=== PATIENT | male | born 1945 | race Caucasian/White ===

== ENCOUNTER 2018-09-05 14:09 | Emergency (ER) | payer OTHER ==
[2018-09-05 14:45] LABS: Absolute Lymphocytes (CBC) 1.8 K/uL (0.7-4.9); Absolute Monocytes 0.9 K/uL (0.1-1.3); Absolute Neutrophil 8.8 K/uL (1.8-8.0); Basophils % 0.9 % (0-1.3); Eosinophils % 0.8 % (0-4.4); Hematocrit 48.7 % (39.6-49.0); Lymphocytes % 15.7 % (15.3-44.8); MPV 9.5 fL (7.6-11.3); Monocytes % 7.6 % (3.3-12.3); RBC Red Blood Cell Count 5.61 M/uL (4.33-5.43)
--- NOTE | 2018-09-05 14:48 | RAD REPORT ---
EXAM DESCRIPTION: Guy Single View09/05/2018 2:35 pm CLINICAL HISTORY: Chest pain COMPARISON: 2007 FINDINGS: The patient is in a poor degree of inspiration. The lungs appear clear of acute infiltrate. The heart is mildly enlarged IMPRESSION: No acute abnormalities displayed
[2018-09-05 14:55] LABS: Protime INR 1.15
[2018-09-05 15:01] LABS: Albumin 3.7 g/dL (3.4-5.0); Bilirubin Direct 0.3 mg/dL (0-0.2); Bilirubin Total 0.8 mg/dL (0.2-1.0); Magnesium 1.8 mg/dL (1.8-2.4); Potassium 3.8 mmol/L (3.5-5.1); Protein, Total 7.1 g/dL (6.4-8.2)
[2018-09-05 15:04] LABS: Troponin (Emerg Dept Use Only) 0.53 ng/mL (0.0-0.045)
[2018-09-05] MEDS ORDERED: NA CHLORIDE 0.9% 500 ML ONE (16:38)
--- NOTE | 2018-09-05 17:03 | EKG ---
Test Date: 2018-09-05 Test Time: 14:21:06 [employer]: LEOBARDO MEASUREMENT RESULTS: Intervals: Rate: 106 NV: 192 QRSD: 156 QT: 480 QTc: 637 Victor: P: 64 NV: 192 QRS: -32 T: 103 INTERPRETIVE STATEMENTS: Sinus tachycardia Left axis deviation Left bundle branch block Abnormal ECG Compared to ECG 11/02/2015 06:41:24 Sinus rhythm no longer present Electronically Signed On 09-05-18 17:03:00 PROCEDURES TECH by Darci Munguia
--- NOTE | 2018-09-05 17:09 | ECHO ---
HEIGHT: ft in WEIGHT: lb oz DATE OF STUDY: 09/05/[address]: Brody Shah MD 2-DIMENSIONAL: YES M.MODE: YES DOPPLER: YES COLOR FLOW: YES TDS: YES PORTABLE: NO DEFINITY: NO BUBBLE STUDY: NO DIAGNOSIS: SHORTNESS OF BREATH, LOW EJECTION FRACTION. CARDIAC HISTORY: CATHERIZATION: YES SURGERY: NO PROSTHETIC VALVE: NO PACEMAKER: NO MEASUREMENTS (cm) DIASTOLIC (NORMALS) SYSTOLIC (NORMALS) IVSd 1.0 (0.6-1.2) LA Diam 5.0 (1.9-4.0) LVEF 15-20% LVIDd 6.0 (3.5-5.7) LVIDs 5.3 (2.0-3.5) %FS 13% LVPWd 1.1 (0.6-1.2) Ao Diam 3.0 (2.0-3.7) 2 DIMENSIONAL ASSESSMENT: RIGHT ATRIUM: DILATED LEFT ATRIUM: DILATED RIGHT VENTRICLE: DILATED LEFT VENTRICLE: DILATED TRICUSPID VALVE: NORMAL MITRAL VALVE: NORMAL PULMONIC VALVE: NORMAL AORTIC VALVE: SCLEROSIS PERICARDIAL EFFUSION: NONE AORTIC ROOT: NORMAL LEFT VENTRICULAR WALL MOTION: SEVERE GLOBAL HYPOKINESIS. DOPPLER/COLOR FLOW: NO AORTIC STENOSIS. MILD AORTIC REGURGITATION AND MITRAL REGURGITATION. COMMENTS: FOUR CHAMBER DILATATION. SEVERLY DEPRESSED LEFT VENTRICULAR EJECTION FRACTION. AORTIC SCLEROSIS WITH NO AORTIC STENOSIS. MILD AORTIC REGURGITATION AND MITRAL REGURGITATION. TECHNOLOGIST: MIKEY OKEEFE [facility]
--- NOTE | 2018-09-05 19:41 | EDPHYS ---
Physician Documentation [facility] Name: Ion Ryan Age: 73 yrs Sex: Male : 1945 Arrival Date: 09/05/2018 Time: 14:13 Bed 4 Private MD: Darci Munguia L ED Physician Patrick Thakkar HPI: 09/05 14:31 This 73 yrs old Male presents to ER via Wheelchair with complaints of Chest kdr Tightness. 14:32 The patient has shortness of breath at rest, with light activity. Onset: The kdr symptoms/episode began/occurred gradually, 2 month(s) ago. Duration: The symptoms are continuous, and are steadily getting worse. The patient's shortness of breath is aggravated by exertion, light activity, walking. Associated signs and symptoms: Pertinent positives: chest pain, nausea. Severity of symptoms: At their worst the symptoms were incapacitating in the emergency department the symptoms are unchanged. The patient has not experienced similar symptoms in the past. The patient has been recently seen by a physician: Sent from Dr. Munguia office. Historical: - Allergies: 14:25 PENICILLINS; ph 14:25 [place]; ph - Home Meds: 14:25 metformin 500 mg Oral tab 2 tabs 2 times per day [Active]; Entresto 49-51 mg oral tab ph [Active]; clopidogrel 75 mg oral tab 1 tab once daily [Active]; furosemide 20 mg Oral tab 1 tab once daily [Active]; rosuvastatin 10 mg oral tab 1 tab once daily [Active]; Lantus 100 unit/mL Sub-Q soln 45 unit twice a day [Active]; - PMHx: 14:25 Myocardial infarction; CHF; Hyperlipidemia; Hypertension; Diabetes - IDDM; ph - Immunization history:: Adult Immunizations unknown. - Social history:: Smoking status: Patient/guardian denies using tobacco. - Ebola Screening: : No symptoms or risks identified at this time. ROS: 14:32 Constitutional: Negative for fever, chills, and weight loss, Eyes: Negative for injury, kdr pain, redness, and discharge, Neck: Negative for injury, pain, and swelling, Abdomen/GI: Negative for abdominal pain, nausea, vomiting, diarrhea, and constipation, Back: Negative for injury and pain, : Negative for injury, bleeding, discharge, and swelling. Exam: 19:34 Constitutional: This is a well developed, well nourished patient who is awake, alert, kdr and in no acute distress. Head/Face: Normocephalic, atraumatic. Eyes: Pupils equal round and reactive to light, extra-ocular motions intact. Lids and lashes normal. Conjunctiva and sclera are non-icteric and not injected. Cornea within normal limits. Periorbital areas with no swelling, redness, or edema. ENT: Nares patent. No nasal discharge, no septal abnormalities noted. Tympanic membranes are normal and external auditory canals are clear. Oropharynx with no redness, swelling, or masses, exudates, or evidence of obstruction, uvula midline. Mucous membranes moist. Neck: Trachea midline, no thyromegaly or masses palpated, and no cervical lymphadenopathy. Supple, full range of motion without nuchal rigidity, or vertebral point tenderness. No Meningismus. Chest/axilla: Normal chest wall appearance and motion. Nontender with no deformity. No lesions are appreciated. Cardiovascular: Regular rate and rhythm with a normal S1 and S2. No gallops, murmurs, or rubs. Normal PMI, no JVD. No pulse deficits. Abdomen/GI: Soft, non-tender, with normal bowel sounds. No distension or tympany. No guarding or rebound. No evidence of tenderness throughout. Back: No spinal tenderness. No costovertebral tenderness. Full range of motion. Male : Normal genitalia with no discharge or lesions. Skin: Warm, dry with normal turgor. Normal color with no rashes, no lesions, and no evidence of cellulitis. Neuro: Awake and alert, GCS 15, oriented to person, place, time, and situation. Cranial nerves II-XII grossly intact. Motor strength 5/5 in all extremities. Sensory grossly intact. Cerebellar exam normal. Normal gait. Psych: Awake, alert, with orientation to person, place and time. Behavior, mood, and affect are within normal limits. 19:34 Respiratory: the patient does not display signs of respiratory distress, Respirations: normal, Breath sounds: rales, that are mild, are located in both bases, decreased breath sounds, that are mild. Vital Signs: 14:21 BP 87 / 64; Pulse 113; Resp 24; Pulse Ox 100% on R/A; Weight 114.76 kg; Pain 8/10; ph 14:41 BP 91 / 67; Pulse 101; Resp 14; Pulse Ox 99% on 2 lpm NC; sv 15:18 BP 84 / 67; Pulse 94; Resp 19; Pulse Ox 100% on 2 lpm NC; tw2 16:00 BP 79 / 58; Pulse 93 MON; Resp 20; Temp 97.2; Pulse Ox 100% on 2 lpm NC; Pain 3/10; sg 16:13 BP 82 / 66; Pulse 90; Resp 19; Pulse Ox 99% on 2 lpm NC; sg 16:43 BP 88 / 70; Pulse 96; Resp 18; Pulse Ox 99% on 2 lpm NC; sg 17:20 BP 89 / 69; Pulse 92; Resp 14; Pulse Ox 96% ; sv 17:41 BP 80 / 67; Pulse 88; Resp 17; Pulse Ox 98% on 2 lpm NC; Pain 0/10; sg 18:17 BP 85 / 64; Pulse 90; Resp 19; Temp 97.7; Pulse Ox 100% on 2 lpm NC; sg 18:40 BP 89 / 63; Pulse 89; Resp 18; Pulse Ox 100% on 2 lpm NC; Pain 0/10; sg 19:32 BP 81 / 68; Pulse 94; Resp 18; Temp 97.8(O); Pulse Ox 96% on 2 lpm NC; Pain 0/10; ed1 MDM: 18:56 Data reviewed: vital signs, nurses notes. ED course: Had several discussions with Dr. traci Bacon, who agreed to accept the patient to a telemetry bed. However, since the patient has been persistently hypotensive (asymptomatic at all times), clearly the patient was going to need an ICU Bed. Dr. Bacon did not feel that such a bed would be available any time soon and we had been previously told by the transfer center at [facility] that there were no ICU beds. Therefore, transfer to another facility was necessary. The family was given the choice of [facility] or [facility] and they opted for [facility]. Transfer has been initiated to [facility]. ED course: The patient currently is stable in the ED with BP 89/70 and is awake, alert and without any evidence of hypoperfusion. 19:38 Patient medically screened. keyana 09/05 14:13 Order name: Basic Metabolic Panel kdr 09/05 14:13 Order name: CBC with Diff kdr 09/05 14:13 Order name: LFT's [facility] 09/05 14:13 Order name: Magnesium [facility] 09/05 14:13 Order name: NT PRO-BNP [facility] 09/05 14:13 Order name: PT-INR [facility] 09/05 14:13 Order name: Troponin (emerg Dept Use Only) [facility] 09/05 14:50 Order name: CBC with Automated Diff; Complete Time: 15:46 EDMS 09/05 14:59 Order name: Protime (+INR); Complete Time: 15:46 EDMS 09/05 15:04 Order name: Basic Metabolic Panel; Complete Time: 15:46 EDMS 09/05 15:04 Order name: Liver (Hepatic) Function; Complete Time: 15:46 EDMS 09/05 15:04 Order name: Troponin (Emerg Dept Use Only); Complete Time: 15:46 EDMS 09/05 15:04 Order name: NT PRO-BNP; Complete Time: 15:46 EDMS 09/05 15:04 Order name: Magnesium; Complete Time: 15:46 EDMS 09/05 14:13 Order name: XRAY Chest (1 view) [facility] 09/05 14:13 Order name: EKG; Complete Time: 14:15 [facility] 09/05 14:13 Order name: Cardiac monitoring; Complete Time: 14:41 [facility] 09/05 14:13 Order name: EKG - Nurse/Tech; Complete Time: 14:41 [facility] 09/05 14:13 Order name: IV Saline Lock; Complete Time: 14:41 [facility] 09/05 14:13 Order name: Labs collected and sent; Complete Time: 14:41 [facility] 09/05 14:13 Order name: O2 Per Protocol; Complete Time: 14:41 [facility] 09/05 14:13 Order name: O2 Sat Monitoring; Complete Time: 14:42 [facility] 09/05 14:31 Order name: Oxygen Per Protocol: 2 l/min; Complete Time: 14:41 [facility] 09/05 14:50 Order name: RAD; Complete Time: 15:46 EDMS 09/05 17:08 Order name: Echo with Doppler EDMS Administered Medications: 16:40 Drug: NS 0.9% 500 ml Route: IV; Rate: bolus; Site: right forearm; sg 17:10 Follow up: Response: No adverse reaction; IV Status: Completed infusion; IV Intake: sg 490ml 19:45 Drug: Lovenox 90 mg Route: Sub-Q; Site: right lower abdomen; ed1 20:37 Follow up: Response: No adverse reaction ed1 19:46 Drug: Aspirin 162 mg Route: PO; ed1 20:37 Follow up: Response: No adverse reaction ed1 19:46 Drug: Pepcid 20 mg Route: IVP; Site: right forearm; ed1 20:37 Follow up: Response: No adverse reaction ed1 Disposition: 09/05/18 19:40 Transfer ordered to [facility]. Diagnosis are Other chest pain, Unspecified combined systolic (congestive) and diastolic (congestive) heart failure, Unspecified kidney failure, Hypotension. - Reason for transfer: Higher level of care. - Accepting physician is dr mert ryan. - Condition is Serious. - Problem is an acute exacerbation. - Symptoms have improved. Signatures: Dispatcher [employer] EDMT Krunal Hernández RN RN Patrick Thakkar MD MD cha Rittger, Kevin, MD MD kdr Riggs, Erika, RN RN ed1 Patria Xavier RN RN ph Corrections: (The following items were deleted from the chart) 17:06 15:49 EC Echo M-Mode 2D Only+[id number].RAD.BRZ ordered. [facility] EDMT 21:09 19:40 09/05/2018 19:40 Transfer ordered to [facility]. ed1 Diagnosis is Other chest pain; Unspecified combined systolic (congestive) and diastolic (congestive) heart failure; Unspecified kidney failure; Hypotension. Reason for transfer: Higher level of care. Accepting physician is dr mert ryan. Condition is Serious. Problem is an acute exacerbation. Symptoms have improved. keyana
--- NOTE | 2018-09-05 19:41 | ER ---
Nurse's Notes [facility] Name: Ion Ryan Age: 73 yrs Sex: Male : 1945 Arrival Date: 09/05/2018 Time: 14:13 Bed 4 Private MD: Darci Munguia L Diagnosis: Other chest pain;Unspecified combined systolic (congestive) and diastolic (congestive) heart failure;Unspecified kidney failure;Hypotension Presentation: 09/05 14:19 Presenting complaint: Patient states: Sent fro Dr Munguia's office, c/o chest tightness, ph SOB and dizziness, reports hx of CHF and NV, states, " He told me to come here and get everything started because I may need a pace maker.". Transition of care: patient was not received from another setting of care. Onset of symptoms was September 05, 2018. Risk Assessment: Do you want to hurt yourself or someone else? Patient reports no desire to harm self or others. Initial Sepsis Screen: Does the patient meet any 2 criteria? No. Patient's initial sepsis screen is negative. Does the patient have a suspected source of infection? No. Patient's initial sepsis screen is negative. Care prior to arrival: None. 14:19 Method Of Arrival: Wheelchair ph 14:19 Acuity: LEO 2 ph Historical: - Allergies: 14:25 PENICILLINS; ph 14:25 [place]; ph - Home Meds: 14:25 metformin 500 mg Oral tab 2 tabs 2 times per day [Active]; Entresto 49-51 mg oral tab ph [Active]; clopidogrel 75 mg oral tab 1 tab once daily [Active]; furosemide 20 mg Oral tab 1 tab once daily [Active]; rosuvastatin 10 mg oral tab 1 tab once daily [Active]; Lantus 100 unit/mL Sub-Q soln 45 unit twice a day [Active]; - PMHx: 14:25 Myocardial infarction; CHF; Hyperlipidemia; Hypertension; Diabetes - IDDM; ph - Immunization history:: Adult Immunizations unknown. - Social history:: Smoking status: Patient/guardian denies using tobacco. - Ebola Screening: : No symptoms or risks identified at this time. Screenin:25 Abuse screen: Denies threats or abuse. Denies injuries from another. Nutritional sg screening: No deficits noted. Tuberculosis screening: No symptoms or risk factors identified. Never had TB. Fall Risk None identified. Assessment: 14:25 General: Appears in no apparent distress. comfortable, well groomed, well developed, sg well nourished, Behavior is calm, cooperative, appropriate for age. Pain: Complains of pain in chest Pain at worst was 10 out of 10 on a pain scale. Quality of pain is described as crushing, Is intermittent. Neuro: Level of Consciousness is awake, alert, obeys commands, Oriented to person, place, time, situation, Hazardous Materials Waste Technician are equal bilaterally Moves all extremities. Full function Speech is normal, Facial symmetry appears normal. Cardiovascular: Capillary refill is brisk in bilateral fingers Patient's skin is warm and dry. Chest pain is described as mild, quality is heaviness. Respiratory: Airway is patent Respiratory effort is even, unlabored, Respiratory pattern is regular, symmetrical. GI: No signs and/or symptoms were reported involving the gastrointestinal system. : No signs and/or symptoms were reported regarding the genitourinary system. EENT: No signs and/or symptoms were reported regarding the EENT system. Derm: Skin is pink, warm \\T\\ dry. Musculoskeletal: No signs and/or symptoms reported regarding the musculoskeletal system. 15:18 Pain: Pain does not radiate. Pain began suddenly. tw2 15:18 Reassessment: Patient appears in no apparent distress at this time. No changes from tw2 previously documented assessment. Patient and/or family updated on plan of care and expected duration. Pain level reassessed. 16:02 Reassessment: Patient appears in no apparent distress at this time. notified sg of pt VS, awaiting transfer to receiving facility at this time ( [facility]), will continue to monitor. 16:04 Reassessment: Patient appears in no apparent distress at this time. Patient and/or sg family updated on plan of care and expected duration. Pain level reassessed. Patient is alert, oriented x 3, equal unlabored respirations, skin warm/dry/pink. Neuro: Level of Consciousness is awake, alert, obeys commands, Oriented to person, place, time, situation, Speech is normal, Facial symmetry appears normal. Respiratory: Airway is patent Respiratory effort is even, unlabored, Respiratory pattern is regular, symmetrical. Derm: Skin is pink, warm \\T\\ dry. 16:40 Reassessment: Patient appears in no apparent distress at this time. Patient is alert, sg oriented x 3, equal unlabored respirations, skin warm/dry/pink. at bedside assessing pt, updated on status of transfer, pt and pt family stated understanding, awaiting transfer approval at this time. 17:39 Reassessment: Patient appears in no apparent distress at this time. Patient and/or sg family updated on plan of care and expected duration. Pain level reassessed. Patient is alert, oriented x 3, equal unlabored respirations, skin warm/dry/pink. awaiting transfer approval at this time, pt family remains at bedside, srx2, ayo in low and locked position, pt remains in Trendelenburg position, no new orders recieved. 18:25 Reassessment: Patient appears in no apparent distress at this time. Patient is alert, sg oriented x 3, equal unlabored respirations, skin warm/dry/pink. Awaiting a call back from [facility] for pt report at this time, check clerk reports he was unable to reach the unit and floor the pt is being assigned to at this time, gave call back number, awaiting call. 18:41 Reassessment: Patient appears in no apparent distress at this time. Patient and/or sg family updated on plan of care and expected duration. Pain level reassessed. Patient is alert, oriented x 3, equal unlabored respirations, skin warm/dry/pink. Patient denies pain at this time. Neuro: Level of Consciousness is awake, alert, obeys commands, Oriented to person, place, time, situation, Hazardous Materials Waste Technician are equal bilaterally Moves all extremities. Speech is normal, Facial symmetry appears normal. Respiratory: Airway is patent Respiratory effort is even, unlabored, Respiratory pattern is. GI: No signs and/or symptoms were reported involving the gastrointestinal system. Derm: Skin is pink, warm \\T\\ dry. 18:45 Reassessment: Patient appears in no apparent distress at this time. Patient is alert, sg oriented x 3, equal unlabored respirations, skin warm/dry/pink. attempt to call report, transfer center front desk representative rep Muñoz reports unable to connect with staff at this time, will try report again, pt updated, stated understanding, will continue to monitor. 18:58 Reassessment: Patient appears in no apparent distress at this time. Patient and/or sg family updated on plan of care and expected duration. Pain level reassessed. Patient is alert, oriented x 3, equal unlabored respirations, skin warm/dry/pink. at bedside updating pt on status of transfer, discussing transfer with pt to [facility] or [facility] [facility] at this time, pt family member reports that they would like to proceed with [facility], reports a family member works at [facility] and can speak with about admission to ICU at [facility]. Continue to awaiting transfer at this time. 19:32 Reassessment: Patient appears in no apparent distress at this time. No changes from ed1 previously documented assessment. Patient and/or family updated on plan of care and expected duration. Pain level reassessed. Patient is alert, oriented x 3, equal unlabored respirations, skin warm/dry/pink. Dr. Thakkar at bedside. 20:13 Reassessment: Report called to Isabella Salomon RN at [facility]. ed1 Vital Signs: 14:21 BP 87 / 64; Pulse 113; Resp 24; Pulse Ox 100% on R/A; Weight 114.76 kg; Pain 8/10; ph 14:41 BP 91 / 67; Pulse 101; Resp 14; Pulse Ox 99% on 2 lpm NC; sv 15:18 BP 84 / 67; Pulse 94; Resp 19; Pulse Ox 100% on 2 lpm NC; tw2 16:00 BP 79 / 58; Pulse 93 MON; Resp 20; Temp 97.2; Pulse Ox 100% on 2 lpm NC; Pain 3/10; sg 16:13 BP 82 / 66; Pulse 90; Resp 19; Pulse Ox 99% on 2 lpm NC; sg 16:43 BP 88 / 70; Pulse 96; Resp 18; Pulse Ox 99% on 2 lpm NC; sg 17:20 BP 89 / 69; Pulse 92; Resp 14; Pulse Ox 96% ; sv 17:41 BP 80 / 67; Pulse 88; Resp 17; Pulse Ox 98% on 2 lpm NC; Pain 0/10; sg 18:17 BP 85 / 64; Pulse 90; Resp 19; Temp 97.7; Pulse Ox 100% on 2 lpm NC; sg 18:40 BP 89 / 63; Pulse 89; Resp 18; Pulse Ox 100% on 2 lpm NC; Pain 0/10; sg 19:32 BP 81 / 68; Pulse 94; Resp 18; Temp 97.8(O); Pulse Ox 96% on 2 lpm NC; Pain 0/10; ed1 ED Course: 14:13 Patient arrived in ED. sb2 14:13 Darci Munguia MD is Private Physician. sb2 14:13 Brody Shah MD is Attending Physician. kdr 14:21 Triage completed. ph 14:25 Arm band placed on Patient placed in an exam room, on a stretcher, in view of staff ph members, on case monitor, on pulse oximetry. 14:25 Initial lab(s) drawn, by ED staff, sent to lab. Inserted saline lock: 18 gauge in right sg forearm, using aseptic technique. Blood collected. 14:31 Krunal Hernández, RN is Primary Nurse. sg 14:[address] Sahu's office for Dr. Shah at [phone]/ the office staff will give eb him a call he's in a procedure at this time. 14:32 X-ray completed. Portable x-ray completed in exam room. Patient tolerated procedure tm4 well. 14:40 Basic Metabolic Panel Sent. sv 14:40 CBC with Diff Sent. sv 14:40 LFT's Sent. sv 14:40 Magnesium Sent. sv 14:40 NT PRO-BNP Sent. sv 14:[address] Sahu with Dr. Shah for patient transfer consultation. eb 14:41 PT-INR Sent. sv 14:41 Troponin (emerg Dept Use Only) Sent. sv 14:41 XRAY Chest (1 view) Sent. sv 14:54 EKG done, by motorcycle service technician. reviewed by Brody Shah MD. at1 15:02 initiated a transfer with Michelle at the [facility]. eb 15:10 Michelle from [facility] called to decline patient in transfer due to them being at eb capacity. 15:[address] Bacon again for Dr. Shah to update on the bed situation at [facility]. eb 15:17 Primary Nurse role handed off by Krunal Hernández, PRABHAKAR tw2 15:17 Brittany Song, RN is Primary Nurse. tw2 15:17 Bed in low position. Call light in reach. groundwater monitoring technician on. Pulse ox on. NIBP on. tw2 15:52 Primary Nurse role handed off by Brittany Song RN sg 15:52 Krunal Hernández, RN is Primary Nurse. sg 16:15 attempted to re-initiate a transfer with the [facility] told to call eb back in 10 minutes. 16:41 re- initiated a transfer with Denny at the [facility] at the request eb of Dr. Bacon. 17:01 2D Echocardiogram with Doppler done by [employer]. dt2 18:14 administrative approval given by Toni Castillo/ pt going to [facility] bed main 874/ eb Dr. Correa has accepted the patient in transfer/ report to be called to [phone]. 18:[address] Correa for Dr. Shah for patient transfer update. eb 18:[address] Correa with Dr. Shah for patient consultation. eb 18:51 initiated a transfer with Chrissy at the [facility]/. eb 19:15 Primary Nurse role handed off by Krunal Hernández, PRABHAKAR ed1 19:15 Aura Ambrose, RN is Primary Nurse. ed1 19:38 Attending Physician role handed off by Brody Shah MD [facility] 19:38 Patrick Thakkar MD is Attending Physician. [facility] 21:08 No provider procedures requiring assistance completed. Patient transferred, IV remains ed1 in place. intact, No redness/swelling at site. Oxygen administration via nasal cannula \\T\\ 2L/min. Administered Medications: 16:40 Drug: NS 0.9% 500 ml Route: IV; Rate: bolus; Site: right forearm; sg 17:10 Follow up: Response: No adverse reaction; IV Status: Completed infusion; IV Intake: sg 490ml 19:45 Drug: Lovenox 90 mg Route: Sub-Q; Site: right lower abdomen; ed1 20:37 Follow up: Response: No adverse reaction ed1 19:46 Drug: Aspirin 162 mg Route: PO; ed1 20:37 Follow up: Response: No adverse reaction ed1 19:46 Drug: Pepcid 20 mg Route: IVP; Site: right forearm; ed1 20:37 Follow up: Response: No adverse reaction ed1 Intake: 17:10 IV: 490ml; Total: 490ml. sg Outcome: 19:40 ER care complete, transfer ordered by . keyana 21:[address] [facility] . to [facility], Transfer form ed1 completed. X-rays sent w/ patient. 21:08 Condition: stable 21:08 Discharge instructions given to patient, family, Instructed on the need for transfer, Demonstrated understanding of instructions. 21:09 Patient left the ED. ed1 Signatures: Nory Mcgregor, RN RN Krunal Hernández RN RN Patrick Silveira MD MD cha Rittger, Kevin, MD MD [facility] Pierre, Zhane tm4 Aura Ambrose RN RN ed1 Nadya Cuevas, look out tower fire watcher EKG Tat1 Patria Xavier RN RN Song, Brittany RN RN tw2 Brianna Oliveros sb2 Jill Corrales Danielle dt2 Corrections: (The following items were deleted from the chart) 18:23 17:41 Cardiac Rhythm Assessment Sinus rhythm W/3rd degreeHB sg sg 18:23 16:13 Cardiac Rhythm Assessment Sinus rhythm W/3rd degreeHB sg sg 18:23 15:20 Cardiac Rhythm Assessment Sinus rhythm W/3rd degreeHB sg sg 19:33 19:32 BP 81 / 68; Pulse 94bpm; Resp 18bpm; Pulse Ox 96% RA; Pain 0/10; ed1 ed1
[2018-09-05] MEDS ORDERED: ASPIRIN 81 MG CHEWABLE TABLET ONE (19:47)
[2018-09-05] MEDS ORDERED: FAMOTIDINE 20 MG/2 ML VIAL IV ONE (19:48)
[2018-09-05] MEDS ORDERED: ENOXAPARIN 100 MG/ML SYR SQ ONE (19:48)
[2018-09-05 21:59] VITALS: BP 81/68; TEMP 97.8; O2SAT 96
== END 2018-09-05 21:09 | disposition short-term general hospital (02) ==
LOC: ER 14:09
DX: I50.40 Unspecified combined systolic (congestive) and diastolic (congestive) heart failure (principal); I95.9 Hypotension, unspecified; N19 Unspecified kidney failure; I10 Essential (primary) hypertension; E11.9 Type 2 diabetes mellitus without complications; E78.5 Hyperlipidemia, unspecified; I25.2 Old myocardial infarction; Z79.4 Long term (current) use of insulin; Z88.0 Allergy status to penicillin; Z91.018 Allergy to other foods
CPT/HCPCS: 36415; 71045; 80048; 80076; 83735; 83880; 84484; 85025; 85610; 93005; 93306; 96372; 96374; 99285; J1650

== ENCOUNTER 2018-11-01 13:28 | Emergency (ER) | payer OTHER, BC ==
[2018-11-01 13:58] LABS: Absolute Lymphocytes (CBC) 1.2 K/uL (0.7-4.9); Absolute Monocytes 0.9 K/uL (0.1-1.3); Absolute Neutrophil 5.6 K/uL (1.8-8.0); Basophils % 1.4 % (0-1.3); Eosinophils % 4.6 % (0-4.4); Hematocrit 38.5 % (39.6-49.0); Lymphocytes % 14.7 % (15.3-44.8); MPV 8.4 fL (7.6-11.3); Monocytes % 10.8 % (3.3-12.3); RBC Red Blood Cell Count 4.56 M/uL (4.33-5.43)
[2018-11-01] MEDS ORDERED: D50W 25 GM/50 ML SYRINGE IV ONE (13:59)
[2018-11-01 14:18] LABS: Potassium 4.8 mmol/L (3.5-5.1)
[2018-11-01] MEDS ORDERED: NA CHLORIDE 0.9% 1,000 ML ONE (14:22)
--- NOTE | 2018-11-01 15:24 | ER ---
Nurse's Notes [facility] Name: Ion Ryan Age: 73 yrs Sex: Male : 1945 Arrival Date: 11/01/2018 Time: 13:33 Bed 26 Private MD: Diagnosis: Dehydration;Hypoglycemia, unspecified Presentation: 11/01 13:33 Presenting complaint: EMS states: pt was at cardiac rehab, first day after having a SD tw2 with 2 stent placements, he was on the steps and got really shaky and weak, they were getting 80's systolic, and they fed his some snacks and his sugar was still 89 but he said he felt better and wasn't shaky then, we got 90's systolic, he does report upping his Lasix recently and has lost 17 pounds in one week. Transition of care: patient was not received from another setting of care. Onset of symptoms was November 01, 2018. Risk Assessment: Do you want to hurt yourself or someone else? Patient reports no desire to harm self or others. Initial Sepsis Screen: Does the patient meet any 2 criteria? No. Patient's initial sepsis screen is negative. Does the patient have a suspected source of infection? No. Patient's initial sepsis screen is negative. Care prior to arrival: Medication(s) given: Normal saline infusion, 500 mL, IV initiated. 20 GA, in the right antecubital area. 13:33 Method Of Arrival: EMS: [facility] tw2 13:33 Acuity: LEO 2 tw2 Historical: - Allergies: 13:40 PENICILLINS; tw2 13:40 [place]; tw2 - Home Meds: 13:40 BRILINTA 90 mg oral tab 1 tab 2 times per day [Active]; lisinopril 5 mg Oral tab 1 tab tw2 once daily [Active]; atorvastatin 40 mg oral tab 1 tab once daily [Active]; aspirin 81 mg Oral TbEC 1 tab once daily [Active]; metformin 500 mg Oral tab 2 tabs 2 times per day [Active]; Lantus 100 unit/mL Sub-Q soln 45 unit twice a day [Active]; clopidogrel 75 mg Oral tab 1 tab once daily [Active]; furosemide 40 mg oral tab [Active]; Entresto 49-51 mg Oral tab [Active]; - PMHx: 13:40 CHF; Diabetes - IDDM; Hyperlipidemia; Hypertension; Myocardial infarction; tw2 - PSHx: 13:40 cardiac stentsx2; tw2 - Immunization history:: Adult Immunizations. - Social history:: Smoking status: . - Ebola Screening: : Patient denies travel to an Ebola-affected area in the 21 days before illness onset. - Family history:: not pertinent. - Hospitalizations: : No recent hospitalization is reported. Screenin:39 Abuse screen: Denies threats or abuse. Nutritional screening: No deficits noted. tw2 Tuberculosis screening: No symptoms or risk factors identified. Fall Risk Secondary diagnosis (15 points) impaired mobility. Assessment: 13:30 General: Appears in no apparent distress. well groomed, Behavior is calm, cooperative, tw2 appropriate for age. Pain: Denies pain. Neuro: Level of Consciousness is awake, alert, obeys commands, Oriented to person, place, time, situation. Cardiovascular: Denies chest pain, shortness of breath, Heart tones S1 S2 Patient's skin is warm and dry. Respiratory: Airway is patent Respiratory effort is even, unlabored, Respiratory pattern is regular, symmetrical, Breath sounds are clear bilaterally. GI: No signs and/or symptoms were reported involving the gastrointestinal system. Abdomen is round non-distended, obese, Bowel sounds present X 4 quads. : No signs and/or symptoms were reported regarding the genitourinary system. EENT: No signs and/or symptoms were reported regarding the EENT system. Derm: No signs and/or symptoms reported regarding the dermatologic system. Musculoskeletal: Range of motion: intact in all extremities. 14:38 Reassessment: Patient appears in no apparent distress at this time. No changes from tw2 previously documented assessment. Patient and/or family updated on plan of care and expected duration. Pain level reassessed. Patient is alert, oriented x 3, equal unlabored respirations, skin warm/dry/pink. Patient states feeling better. 15:32 Reassessment: Patient appears in no apparent distress at this time. No changes from tw2 previously documented assessment. Patient and/or family updated on plan of care and expected duration. Pain level reassessed. Patient is alert, oriented x 3, equal unlabored respirations, skin warm/dry/pink. Vital Signs: 13:30 BP 90 / 57; Pulse 68; Resp 17; Pulse Ox 100% ; tw2 13:36 BP 88 / 63; Pulse 70; Resp 17; Temp 99(O); Pulse Ox 100% ; Pain 0/10; tw2 14:00 BP 106 / 76; Pulse 71; Resp 17; Pulse Ox 100% on R/A; tw2 14:38 BP 94 / 76; Pulse 75; Resp 17; Pulse Ox 100% on R/A; tw2 15:06 BP 92 / 64; Pulse 67; Resp 17; Pulse Ox 100% on R/A; tw2 ED Course: 13:33 Patient arrived in ED. rn 13:33 Luis Shin MD is Attending Physician. rn 13:33 Brittany Song RN is Primary Nurse. tw2 13:35 Triage completed. tw2 13:36 Arm band placed on. EKG completed in triage. Results shown to MD. tw2 13:36 Bed in low position. Call light in reach. Side rails up X 1. electronic device monitor on. Pulse tw2 ox on. NIBP on. 13:41 Maintain EMS IV. Dressing intact. Good blood return noted. Site clean \T\ dry. Gauge \T\ tw 2 site: 20 g RIGHT AC. 13:56 EKG done, by heating repair technician. reviewed by Luis Shin MD. sm3 14:15 Urine collected: clean catch specimen, clear, alba colored, Amount Voided: 100mL. jp3 15:32 No provider procedures requiring assistance completed. IV discontinued, intact, tw2 bleeding controlled, No redness/swelling at site. Pressure dressing applied. Administered Medications: 13:50 Drug: D50W 50 ml Route: IVP; Site: right antecubital; tw2 15:07 Follow up: Response: No adverse reaction; Blood sugar is elevated tw2 14:15 Drug: NS 0.9% 500 ml Route: IV; Rate: bolus; Site: right antecubital; tw2 15:07 Follow up: Response: No adverse reaction; IV Status: Completed infusion; IV Intake: tw2 500ml Point of Care Testing: Blood Glucose: 13:47 Blood Glucose: 62 mg/dL; tw2 15:06 Blood Glucose: 113 mg/dL; tw2 13:47 provider notified. tw2 Ranges: Intake: 15:07 IV: 500ml; Total: 500ml. tw2 Outcome: 15:23 Discharge ordered by . rn 15:32 Discharged to home ambulatory. tw2 15:32 Condition: stable 15:32 Discharge instructions given to patient, Instructed on discharge instructions, follow up and referral plans. Demonstrated understanding of instructions, follow-up care. 15:32 Patient left the ED. tw2 Signatures: Luis Shin MD MD rn Wise, Tara, RN RN tw2 Aicha Padilla 3 Levi Moeller 3
--- NOTE | 2018-11-01 15:24 | EDPHYS ---
Physician Documentation [facility] Name: Ion Ryan Age: 73 yrs Sex: Male : 1945 Arrival Date: 11/01/2018 Time: 13:33 Bed 26 Private MD: ED Physician Luis Shin HPI: 11/01 15:02 This 73 yrs old Male presents to ER via EMS with complaints of shaking, rn weakness. 15:02 Reports at cardiac rehab, about 2 min into exercise, began to feel shaky, weak, is rn diabetic and didn't eat lunch, gave himself lantus this AM, given juice and food, glucose afterward (not checked prior) was 89. No fever/chest pain/sob/abd pain/vomiting/diarrhea. 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 Onset: The symptoms/episode began/occurred just prior to arrival. Severity of symptoms: At their worst the symptoms were moderate in the emergency department the symptoms have improved. The patient has not experienced similar symptoms in the past. The patient has been recently seen by a physician:. Historical: - Allergies: 13:40 PENICILLINS; tw2 13:40 [place]; tw2 - Home Meds: 13:40 BRILINTA 90 mg oral tab 1 tab 2 times per day [Active]; lisinopril 5 mg Oral tab 1 tab tw2 once daily [Active]; atorvastatin 40 mg oral tab 1 tab once daily [Active]; aspirin 81 mg Oral TbEC 1 tab once daily [Active]; metformin 500 mg Oral tab 2 tabs 2 times per day [Active]; Lantus 100 unit/mL Sub-Q soln 45 unit twice a day [Active]; clopidogrel 75 mg Oral tab 1 tab once daily [Active]; furosemide 40 mg oral tab [Active]; Entresto 49-51 mg Oral tab [Active]; - PMHx: 13:40 CHF; Diabetes - IDDM; Hyperlipidemia; Hypertension; Myocardial infarction; tw2 - PSHx: 13:40 cardiac stentsx2; tw2 - Immunization history:: Adult Immunizations. - Social history:: Smoking status: . - Ebola Screening: : Patient denies travel to an Ebola-affected area in the 21 days before illness onset. - Family history:: not pertinent. - Hospitalizations: : No recent hospitalization is reported. ROS: 15:02 Constitutional: Negative for fever Eyes: Negative for injury, pain, redness, and marketing intern, Neck: Negative for injury, pain, and swelling, Cardiovascular: Negative for chest pain, palpitations, and edema, Respiratory: Negative for shortness of breath, cough, wheezing, and pleuritic chest pain, Abdomen/GI: Negative for abdominal pain, nausea, vomiting, diarrhea, and constipation, MS/Extremity: Negative for injury and deformity, Skin: Negative for injury, rash, and discoloration, Neuro: Negative for headache, numbness, tingling, and seizure. Exam: 15:02 Constitutional: This is a well developed, well nourished patient who is awake, alert, rn and in no acute distress. Head/Face: Normocephalic, atraumatic. Eyes: Pupils equal round and reactive to light, extra-ocular motions intact. Lids and lashes normal. Conjunctiva and sclera are non-icteric and not injected. Cornea within normal limits. Periorbital areas with no swelling, redness, or edema. Cardiovascular: Regular rate and rhythm, No pulse deficits. Respiratory: Lungs have equal breath sounds bilaterally, clear to auscultation. No increased work of breathing, no retractions or nasal flaring. Abdomen/GI: soft, non-tender Skin: Warm, dry MS/ Extremity: Pulses equal, no cyanosis. Neurovascular intact. Full, normal range of motion. Equal circumference. Neuro: Awake and alert, GCS 15, oriented to person, place, time, and situation. Cranial nerves II-XII grossly intact. Motor strength 5/5 in all extremities. Sensory grossly intact. Cerebellar exam normal. Normal gait. Vital Signs: 13:30 BP 90 / 57; Pulse 68; Resp 17; Pulse Ox 100% ; tw2 13:36 BP 88 / 63; Pulse 70; Resp 17; Temp 99(O); Pulse Ox 100% ; Pain 0/10; tw2 14:00 BP 106 / 76; Pulse 71; Resp 17; Pulse Ox 100% on R/A; tw2 14:38 BP 94 / 76; Pulse 75; Resp 17; Pulse Ox 100% on R/A; tw2 15:06 BP 92 / 64; Pulse 67; Resp 17; Pulse Ox 100% on R/A; tw2 MDM: 13:33 Patient medically screened. rn 15:21 Differential Diagnosis dehydration, overdiuresis, hypoglycemia. Data reviewed: vital rn signs, nurses notes, lab test result(s), EKG, and as a result, I will discharge patient. Counseling: I had a detailed discussion with the patient and/or guardian regarding: the historical points, exam findings, and any diagnostic results supporting the discharge/admit diagnosis, lab results, radiology results, the need for outpatient follow up, to return to the emergency department if symptoms worsen or persist or if there are any questions or concerns that arise at home. Response to treatment: the patient's symptoms have markedly improved after treatment, the patient's condition has returned to base line, the patient is now symptom free, and as a result, I will discharge patient. Special discussion: I discussed with the patient/guardian in detail that at this point there is no indication for admission to the hospital. It is understood, however, that if the symptoms persist or worsen the patient needs to return immediately for re-evaluation. ED course: Pt much better, likely over-diuresed, and shaking episode from hypoglycemia, now 113 after d50 and food. Asymptomatic, walking to bathroom without assistance, and asking to go home. . 11/01 13:35 Order name: CBC with Diff; Complete Time: 14:33 rn 11/01 13:35 Order name: Basic Metabolic Panel; Complete Time: 14:33 rn 11/01 13:48 Order name: Glucose, Ancillary Testing; Complete Time: 14:33 EDMS 11/01 15:09 Order name: Urine Dipstick--Ancillary (enter results) eb 11/01 13:35 Order name: IV Start; Complete Time: 13:41 rn 11/01 13:35 Order name: Glucose Level; Complete Time: 14:19 rn 11/01 13:35 Order name: EKG; Complete Time: 13:35 rn 11/01 13:35 Order name: EKG - Nurse/Tech; Complete Time: 13:41 rn Administered Medications: 13:50 Drug: D50W 50 ml Route: IVP; Site: right antecubital; tw2 15:07 Follow up: Response: No adverse reaction; Blood sugar is elevated tw2 14:15 Drug: NS 0.9% 500 ml Route: IV; Rate: bolus; Site: right antecubital; tw2 15:07 Follow up: Response: No adverse reaction; IV Status: Completed infusion; IV Intake: tw2 500ml Point of Care Testing: Blood Glucose: 13:47 Blood Glucose: 62 mg/dL; tw2 15:06 Blood Glucose: 113 mg/dL; tw2 13:47 provider notified. tw2 Ranges: Critical Glucose Levels:Adult <50 mg/dl or >400 mg/dl <40 mg/dl or >180 mg/dl Disposition: 11/01/18 15:23 Discharged to Home. Impression: Dehydration, Hypoglycemia, unspecified. - Condition is Stable. - Discharge Instructions: Dehydration, Adult, Hypoglycemia, Blood Glucose Monitoring, Adult. - Medication Reconciliation Form, Thank You Letter, Antibiotic Education, Prescription Opioid Use form. - Follow up: Private Physician; When: As needed; Reason: Recheck today's complaints, Re-evaluation by your physician. - Problem is new. - Symptoms have improved. Signatures: Dispatcher [employer] EDMS Luis Shin MD MD rn Wise, Tara, RN RN tw2 Corrections: (The following items were deleted from the chart) 15:32 15:23 11/01/2018 15:23 Discharged to Home. Impression: Dehydration; Hypoglycemia, tw2 unspecified. Condition is Stable. Forms are Medication Reconciliation Form, Thank You Letter, Antibiotic Education, Prescription Opioid Use. Follow up: Private Physician; When: As needed; Reason: Recheck today's complaints, Re-evaluation by your physician. Problem is new. Symptoms have improved. rn
[2018-11-01 16:23] VITALS: O2SAT 100
[2018-11-01 16:24] VITALS: TEMP 99
[2018-11-01 16:28] VITALS: BP 92/64
[2018-11-01 20:10] LABS: Urine Blood NEGATIVE (NEG); Urine Glucose NEGATIVE (NEG); Urine Protein NEGATIVE (NEG); Urine Specific Gravity 1.015 (1.005-1.030)
== END 2018-11-01 15:32 | disposition home or self-care (01) ==
LOC: ER 13:28
DX: E86.0 Dehydration (principal); E11.649 Type 2 diabetes mellitus with hypoglycemia without coma; I10 Essential (primary) hypertension; I25.2 Old myocardial infarction; Z79.4 Long term (current) use of insulin; Z79.82 Long term (current) use of aspirin; Z88.0 Allergy status to penicillin; Z91.018 Allergy to other foods; Z95.818 Presence of other cardiac implants and grafts
CPT/HCPCS: 96361; 93005; 85025; 80048; 36415; 82962 ×2; 81003; 96374; 99284; J7030

== ENCOUNTER 2018-11-05 13:04 | Observation (INO) | payer OTHER, BC ==
[2018-11-05] MEDS ORDERED: BACI/NEOMYCIN/POLY OINT 15GM TOP ONE (14:16)
--- NOTE | 2018-11-05 14:17 | RAD REPORT ---
EXAM DESCRIPTION: Guy Single View11/05/2018 2:10 pm CLINICAL HISTORY: Cough COMPARISON: August 2018 FINDINGS: Patient is in a poor degree of inspiration. The lungs appear clear of acute infiltrate. The heart is mildly to moderately enlarged IMPRESSION: No acute abnormalities displayed
[2018-11-05 14:30] LABS: Urine Blood NEGATIVE (NEG); Urine Glucose NEGATIVE (NEG); Urine Protein NEGATIVE (NEG); Urine pH 5.5 (5.0-7.0)
[2018-11-05 14:41] LABS: Protime INR 0.91
[2018-11-05 14:43] LABS: Absolute Lymphocytes (CBC) 1.2 K/uL (0.7-4.9); Absolute Monocytes 0.9 K/uL (0.1-1.3); Absolute Neutrophil 9.6 K/uL (1.8-8.0); Basophils % 0.9 % (0-1.3); Eosinophils % 1.7 % (0-4.4); Hematocrit 41.9 % (39.6-49.0); Lymphocytes % 9.7 % (15.3-44.8); Monocytes % 7.8 % (3.3-12.3); RBC Red Blood Cell Count 5.04 M/uL (4.33-5.43)
[2018-11-05 15:06] LABS: Blood Morphology Comment NOT SEEN (NOT SEEN); Platelet Estimate ADEQ; Platelets, Giant PRESENT
[2018-11-05 15:15] LABS: Albumin 3.6 g/dL (3.4-5.0); Bilirubin Direct 0.1 mg/dL (0-0.2); Bilirubin Total 0.4 mg/dL (0.2-1.0); Magnesium 1.8 mg/dL (1.8-2.4); Potassium 4.5 mmol/L (3.5-5.1); Protein, Total 6.9 g/dL (6.4-8.2); Troponin (Emerg Dept Use Only) 0.1 ng/mL (0.0-0.045)
--- NOTE | 2018-11-05 16:07 | ER ---
Nurse's Notes [facility] Name: Ion Ryan Age: 73 yrs Sex: Male : 1945 Arrival Date: 11/05/2018 Time: 13:10 Bed 27 Private MD: Diagnosis: Weakness;Hypoglycemia, unspecified;Type 2 diabetes mellitus;Heart failure, unspecified Presentation: 11/05 13:10 Presenting complaint: EMS states: Called in for unresponsiveness of pt. Pt lethargic ca1 upon arrival, FSBG 40 at 1230. Last seen fully awake and alert 0700. Transition of care: patient was not received from another setting of care. Onset of symptoms was November 05, 2018. Risk Assessment: Do you want to hurt yourself or someone else? Patient reports no desire to harm self or others. Initial Sepsis Screen: Does the patient meet any 2 criteria? No. Patient's initial sepsis screen is negative. Does the patient have a suspected source of infection? No. Patient's initial sepsis screen is negative. Care prior to arrival: Medication(s) given: Normal saline infusion, 300ml D10 250ml Glucose check: 40 upon arrival at 1230. Repeat FSBG by EMS after interventions is 240. 13:10 Method Of Arrival: EMS: [facility] ca1 13:10 Acuity: LEO 3 ca1 13:10 Care prior to arrival: IV initiated. 18 GA, in the left forearm. ca1 Triage Assessment: 13:18 General: Appears in no apparent distress. comfortable, Behavior is calm, cooperative, ca1 appropriate for age. Pain: Complains of pain in right horton Pain does not radiate. Pain currently is 5 out of 10 on a pain scale. EENT:. Neuro: Level of Consciousness is awake, alert, obeys commands, Oriented to person, place, time, situation. Historical: - Allergies: 13:18 PENICILLINS; ca1 13:18 [place]; ca1 - Home Meds: 13:51 aspirin 81 mg Oral TbEC 1 tab once daily [Active]; atorvastatin 40 mg Oral tab 1 tab ca1 once daily [Active]; metformin 500 mg Oral tab 2 tabs 2 times per day [Active]; furosemide 40 mg Oral tab 1 tab once daily [Active]; Entresto 24-26 mg oral tab 1 tab twice a day [Active]; clopidogrel 3.125 Oral tab 1 tab twice daily [Active]; Lantus 100 unit/mL Sub-Q soln 45 unit twice a day [Active]; BRILINTA 90 mg Oral tab 1 tab 2 times per day [Active]; - PMHx: 13:18 CHF; Diabetes - IDDM; Hyperlipidemia; Hypertension; Myocardial infarction; ca1 - PSHx: 13:18 cardiac stentsx2; Appendectomy; cataracts; Knee surgery; Carpal Tunnel Repair; ca1 - Immunization history:: Pneumococcal vaccine is up to date, Flu vaccine is up to date. - Social history:: Smoking status: Patient/guardian denies using tobacco. - Ebola Screening: : No symptoms or risks identified at this time. - Family history:: not pertinent. Screenin:18 Abuse screen: Denies threats or abuse. Denies injuries from another. Nutritional ca1 screening: No deficits noted. Tuberculosis screening: No symptoms or risk factors identified. Fall Risk Fall in past 12 months (25 points). IV access (20 points). Assessment: 13:18 General: Appears in no apparent distress. comfortable, Behavior is calm, cooperative, ca1 appropriate for age. Pain: Complains of pain in right horton Pain currently is 5 out of 10 on a pain scale. Neuro: Level of Consciousness is awake, alert, obeys commands, Oriented to person, place, time, situation, Infrastructure Developer are equal bilaterally Moves all extremities. Speech is normal, Facial symmetry appears normal, Pupils are PERRLA. Cardiovascular: Heart tones S1 S2 present Capillary refill < 3 seconds Patient's skin is warm and dry. Respiratory: Airway is patent Respiratory effort is even, unlabored, Respiratory pattern is regular, symmetrical, Breath sounds are clear bilaterally. GI: Abdomen is round non-distended, Bowel sounds present X 4 quads. Abd is soft and non tender X 4 quads. : No deficits noted. No signs and/or symptoms were reported regarding the genitourinary system. EENT: No deficits noted. No signs and/or symptoms were reported regarding the EENT system. Derm: Skin is intact, Skin is pink, warm \T\ dry. Musculoskeletal: Circulation, motion, and sensation intact. Capillary refill < 3 seconds. Injury Description: Abrasion sustained to right horton. 14:00 Reassessment: Called dietary for Diet orders. ca1 14:17 Reassessment: Patient appears in no apparent distress at this time. Patient and/or ca1 family updated on plan of care and expected duration. Pain level reassessed. Patient is alert, oriented x 3, equal unlabored respirations, skin warm/dry/pink. 15:05 Reassessment: Patient appears in no apparent distress at this time. Patient is alert, ca1 oriented x 3, equal unlabored respirations, skin warm/dry/pink. Pt consumed meal. States feeling better. 15:56 Reassessment: Patient appears in no apparent distress at this time. Patient and/or ca1 family updated on plan of care and expected duration. Pain level reassessed. Patient is alert, oriented x 3, equal unlabored respirations, skin warm/dry/pink. 16:26 Reassessment: Patient appears in no apparent distress at this time. Patient and/or ca1 family updated on plan of care and expected duration. Pain level reassessed. Patient is alert, oriented x 3, equal unlabored respirations, skin warm/dry/pink. 17:30 Reassessment: Patient appears in no apparent distress at this time. Patient and/or ca1 family updated on plan of care and expected duration. Pain level reassessed. Patient is alert, oriented x 3, equal unlabored respirations, skin warm/dry/pink. Awaiting room assignment. 18:14 Reassessment: Patient appears in no apparent distress at this time. Patient is alert, ca1 oriented x 3, equal unlabored respirations, skin warm/dry/pink. Patient states feeling better. Vital Signs: 13:18 BP 100 / 88; Pulse 69; Resp 20; Temp 97.6(O); Pulse Ox 100% on R/A; Weight 106.59 kg; ca1 Height 5 ft. 10 in. (177.80 cm); Pain 5/10; 13:45 BP 105 / 88; Pulse 75; Resp 19; Pulse Ox 100% on R/A; ca1 14:30 BP 96 / 64; Pulse 76; Resp 20; Pulse Ox 100% on R/A; ca1 15:05 BP 101 / 84; Pulse 72; Resp 19; Pulse Ox 100% on R/A; ca1 15:49 BP 106 / 69; Pulse 72; Resp 19; Pulse Ox 99% on R/A; ca1 16:26 BP 95 / 67; Pulse 76; Resp 19; Pulse Ox 95% on R/A; ca1 17:00 BP 94 / 67; Pulse 74; Resp 19; Pulse Ox 99% on R/A; ca1 17:30 BP 91 / 68; Pulse 74; Resp 19; Pulse Ox 99% on R/A; ca1 18:14 BP 95 / 65; Pulse 74; Resp 19; Pulse Ox 98% on R/A; ca1 13:18 Body Mass Index 33.72 (106.59 kg, 177.80 cm) ca1 ED Course: 13:10 Patient arrived in ED. ca1 13:17 Triage completed. ca1 13:18 Arm band placed on right wrist. ca1 13:18 Patient has correct armband on for positive identification. Placed in gown. Bed in low ca1 position. Call light in reach. Side rails up X2. electronics engineering manager on. Pulse ox on. NIBP on. Warm blanket given. 13:19 Patrick Thakkar MD is Attending Physician. keyana 13:20 Maintain EMS IV. Dressing intact. Good blood return noted. Site clean \T\ dry. Gauge \T\ ca 1 site: g18 LFA. 13:45 Luz Pelayo RN is Primary Nurse. ca1 14:09 X-ray completed. Portable x-ray completed in exam room. jr1 14:10 Dressings: Kerlix X 1; right horton 4X4s X 4; right horton. ca1 14:11 XRAY Chest (1 view) In Process Unspecified. EDMS 14:16 EKG done, by cable technician. reviewed by Patrick Thakkar MD. sm3 14:27 Initial lab(s) drawn, by mo, sent to lab. tm3 14:29 Diet: Patient given a diabetic meal tray. ca1 15:43 Allison Khan MD is Hospitalizing Provider. keyana 18:17 No provider procedures requiring assistance completed. Patient admitted, IV remains in ca1 place. Administered Medications: 14:10 Drug: Neosporin Ointment 1 application Route: Topical; Site: wound; ca1 Point of Care Testing: Blood Glucose: 13:18 Blood Glucose: 115 mg/dL; ca1 Ranges: Outcome: 16:07 Decision to Hospitalize by Provider. keyana 18:17 Admitted to Med/surg accompanied by tech, via wheelchair, room 209, with chart, Report ca1 called to Ashly Bernstein RN 18:17 Condition: stable ca1 18:17 Instructed on the need for admit. ca1 18:19 Patient left the ED. ca1 Signatures: Dispatcher [employer] EDMS YeyoEdinsoni [email or web address] Patrick Thakkar MD MD cha [place], Jennifer jr1 Aicha Padilla 3 Luz Pelayo RN RN ca1 Corrections: (The following items were deleted from the chart) 18:18 13:20 Maintain EMS IV. Dressing intact. Site clean \T\ dry. Gauge \T\ site: g18 LFA. ca1 ca 1 18:19 18:17 Instructed on the need for transfer, ca1 ca1
--- NOTE | 2018-11-05 16:07 | EDPHYS ---
Physician Documentation [facility] Name: Ion Ryan Age: 73 yrs Sex: Male : 1945 Arrival Date: 11/05/2018 Time: 13:10 Bed 27 Private MD: ED Physician Patrick Thakkar HPI: 11/05 14:00 This 73 yrs old Male presents to ER via EMS with complaints of hypoglycemia. keyana 14:00 The patient presents with decreased mental status. Onset: The symptoms/episode keyana began/occurred just prior to arrival. Possible causes: low blood sugar, the patient uses insulin, the patient takes and oral hypoglycemic, the patient apparently forgot to eat. Associated signs and symptoms: The patient has no apparent associated signs or symptoms. Current symptoms: In the emergency department the patient's symptoms have improved, moderately. Patient's baseline: Neuro:. The patient has not experienced similar symptoms in the past. Historical: - Allergies: 13:18 PENICILLINS; ca1 13:18 [place]; ca1 - Home Meds: 13:51 aspirin 81 mg Oral TbEC 1 tab once daily [Active]; atorvastatin 40 mg Oral tab 1 tab ca1 once daily [Active]; metformin 500 mg Oral tab 2 tabs 2 times per day [Active]; furosemide 40 mg Oral tab 1 tab once daily [Active]; Entresto 24-26 mg oral tab 1 tab twice a day [Active]; clopidogrel 3.125 Oral tab 1 tab twice daily [Active]; Lantus 100 unit/mL Sub-Q soln 45 unit twice a day [Active]; BRILINTA 90 mg Oral tab 1 tab 2 times per day [Active]; - PMHx: 13:18 CHF; Diabetes - IDDM; Hyperlipidemia; Hypertension; Myocardial infarction; ca1 - PSHx: 13:18 cardiac stentsx2; Appendectomy; cataracts; Knee surgery; Carpal Tunnel Repair; ca1 - Immunization history:: Pneumococcal vaccine is up to date, Flu vaccine is up to date. - Social history:: Smoking status: Patient/guardian denies using tobacco. - Ebola Screening: : No symptoms or risks identified at this time. - Family history:: not pertinent. ROS: 14:00 Constitutional: Negative for fever, chills, and weight loss, Eyes: Negative for injury, keyana pain, redness, and discharge, ENT: Negative for injury, pain, and discharge, Neck: Negative for injury, pain, and swelling, Cardiovascular: Negative for chest pain, palpitations, and edema, Respiratory: Negative for shortness of breath, cough, wheezing, and pleuritic chest pain, Abdomen/GI: Negative for abdominal pain, nausea, vomiting, diarrhea, and constipation, Back: Negative for injury and pain, : Negative for injury, bleeding, discharge, and swelling, Skin: Negative for injury, rash, and discoloration, Psych: Negative for depression, anxiety, suicide ideation, homicidal ideation, and hallucinations, Allergy/Immunology: Negative for hives, rash, and allergies, Endocrine: Negative for neck swelling, polydipsia, polyuria, polyphagia, and marked weight changes, Hematologic/Lymphatic: Negative for swollen nodes, abnormal bleeding, and unusual bruising. 14:00 MS/extremity: Positive for abrasion, contusion, of the right hand and right leg. Exam: 14:00 Constitutional: This is a well developed, well nourished patient who is awake, alert, keyana and in no acute distress. Head/Face: Normocephalic, atraumatic. Eyes: Pupils equal round and reactive to light, extra-ocular motions intact. Lids and lashes normal. Conjunctiva and sclera are non-icteric and not injected. Cornea within normal limits. Periorbital areas with no swelling, redness, or edema. ENT: Nares patent. No nasal discharge, no septal abnormalities noted. Tympanic membranes are normal and external auditory canals are clear. Oropharynx with no redness, swelling, or masses, exudates, or evidence of obstruction, uvula midline. Mucous membranes moist. Neck: Trachea midline, no thyromegaly or masses palpated, and no cervical lymphadenopathy. Supple, full range of motion without nuchal rigidity, or vertebral point tenderness. No Meningismus. Chest/axilla: Normal chest wall appearance and motion. Nontender with no deformity. No lesions are appreciated. Cardiovascular: Regular rate and rhythm with a normal S1 and S2. No gallops, murmurs, or rubs. Normal PMI, no JVD. No pulse deficits. Respiratory: Lungs have equal breath sounds bilaterally, clear to auscultation and percussion. No rales, rhonchi or wheezes noted. No increased work of breathing, no retractions or nasal flaring. Abdomen/GI: Soft, non-tender, with normal bowel sounds. No distension or tympany. No guarding or rebound. No evidence of tenderness throughout. Back: No spinal tenderness. No costovertebral tenderness. Full range of motion. Male : Normal genitalia with no discharge or lesions. Skin: Warm, dry with normal turgor. Normal color with no rashes, no lesions, and no evidence of cellulitis. Neuro: Awake and alert, GCS 15, oriented to person, place, time, and situation. Cranial nerves II-XII grossly intact. Motor strength 5/5 in all extremities. Sensory grossly intact. Cerebellar exam normal. Normal gait. Psych: Awake, alert, with orientation to person, place and time. Behavior, mood, and affect are within normal limits. 14:00 Musculoskeletal/extremity: Extremities: noted in the right hand and right leg: abrasion, pain. Vital Signs: 13:18 BP 100 / 88; Pulse 69; Resp 20; Temp 97.6(O); Pulse Ox 100% on R/A; Weight 106.59 kg; ca1 Height 5 ft. 10 in. (177.80 cm); Pain 5/10; 13:45 BP 105 / 88; Pulse 75; Resp 19; Pulse Ox 100% on R/A; ca1 14:30 BP 96 / 64; Pulse 76; Resp 20; Pulse Ox 100% on R/A; ca1 15:05 BP 101 / 84; Pulse 72; Resp 19; Pulse Ox 100% on R/A; ca1 15:49 BP 106 / 69; Pulse 72; Resp 19; Pulse Ox 99% on R/A; ca1 16:26 BP 95 / 67; Pulse 76; Resp 19; Pulse Ox 95% on R/A; ca1 17:00 BP 94 / 67; Pulse 74; Resp 19; Pulse Ox 99% on R/A; ca1 17:30 BP 91 / 68; Pulse 74; Resp 19; Pulse Ox 99% on R/A; ca1 18:14 BP 95 / 65; Pulse 74; Resp 19; Pulse Ox 98% on R/A; ca1 13:18 Body Mass Index 33.72 (106.59 kg, 177.80 cm) ca1 MDM: 13:19 Patient medically screened. [facility] 11/05 13:59 Order name: Basic Metabolic Panel; Complete Time: 15:17 [facility] 11/05 13:59 Order name: CBC with Diff; Complete Time: 15:17 keyana 11/05 13:59 Order name: LFT's; Complete Time: 15:17 keyana 11/05 13:59 Order name: Magnesium; Complete Time: 15:17 keyana 11/05 13:59 Order name: NT PRO-BNP; Complete Time: 15:17 keyana 11/05 13:59 Order name: PT-INR; Complete Time: 14:57 keyana 11/05 13:59 Order name: Troponin (emerg Dept Use Only); Complete Time: 15:17 keyana 11/05 13:59 Order name: XRAY Chest (1 view); Complete Time: 14:39 keyana 11/05 13:59 Order name: EKG; Complete Time: 14:00 keyana 11/05 14:16 Order name: Urine Dipstick--Ancillary (enter results); Complete Time: 14:39 11/05 14:50 Order name: Manual Differential; Complete Time: 15:17 EDMS 11/05 17:19 Order name: Glucose, Ancillary Testing; Complete Time: 17:41 EDMS 11/05 17:20 Order name: Glucose, Ancillary Testing; Complete Time: 17:41 EDMS 11/05 13:59 Order name: Cardiac monitoring; Complete Time: 14:00 [facility] 11/05 13:59 Order name: EKG - Nurse/Tech; Complete Time: 14:10 [facility] 11/05 13:59 Order name: IV Saline Lock; Complete Time: 14:00 [facility] 11/05 13:59 Order name: Labs collected and sent; Complete Time: 14:00 [facility] 11/05 13:59 Order name: O2 Per Protocol; Complete Time: 14:00 [facility] 11/05 13:59 Order name: O2 Sat Monitoring; Complete Time: 14:00 [facility] 11/05 13:59 Order name: Urine Dipstick-Ancillary (obtain specimen); Complete Time: 14:10 [facility] 11/05 13:59 Order name: Diet Ada 2000 Nasim; Complete Time: 14:00 [facility] 11/05 14:04 Order name: Wound dressing; Complete Time: 14:10 [facility] 11/05 15:42 Order name: Vital Signs; Complete Time: 15:48 [facility] 11/05 16:03 Order name: CONS Physician Consult EDMS Administered Medications: 14:10 Drug: Neosporin Ointment 1 application Route: Topical; Site: wound; ca1 Point of Care Testing: Blood Glucose: 13:18 Blood Glucose: 115 mg/dL; ca1 Ranges: Critical Glucose Levels:Adult <50 mg/dl or >400 mg/dl <40 mg/dl or >180 mg/dl Disposition: 11/05/18 16:07 Hospitalization ordered by Allison Khan for Observation. Preliminary diagnosis are Weakness, Hypoglycemia, unspecified, Type 2 diabetes mellitus, Heart failure, unspecified. - Bed requested for Telemetry/MedSurg (observation). - Status is Observation. ca1 - Condition is Stable. - Problem is new. - Symptoms have improved. UTI on Admission? No Signatures: Dispatcher [employer] Lisa Díaz RN RN dw Anderson, Corey, MD MD cha Acob, Cheryl, RN RN ca1 Corrections: (The following items were deleted from the chart) 17:05 16:07 Hospitalization Ordered by Allison Khan MD for Observation. Preliminary dw diagnosis is Weakness; Hypoglycemia, unspecified; Type 2 diabetes mellitus; Heart failure, unspecified. Bed requested for Telemetry/MedSurg (observation). Status is Observation. Condition is Stable. Problem is new. Symptoms have improved. UTI on Admission? No. keyana 18:19 17:05 11/05/2018 16:07 Hospitalization Ordered by Allison Khan MD for Observation. ca1 Preliminary diagnosis is Weakness; Hypoglycemia, unspecified; Type 2 diabetes mellitus; Heart failure, unspecified. Bed requested for Telemetry/MedSurg (observation). Status is Observation. Condition is Stable. Problem is new. Symptoms have improved. UTI on Admission? No. dw
[2018-11-05] MEDS ORDERED: ACETAMINOPHEN 325 MG TABLET PO PRN (18:26)
[2018-11-05] MEDS ORDERED: ALBUTEROL 2.5 MG/3 ML NEB SOL NEB PRN (18:26)
[2018-11-05] MEDS ORDERED: GLUCAGON 1 MG/VIAL IM PRN (18:26)
[2018-11-05] MEDS ORDERED: ONDANSETRON 4 MG/2 ML VIAL IV PRN (18:26)
[2018-11-05] MEDS ORDERED: D50W 25 GM/50 ML SYRINGE IV PRN (18:26)
[2018-11-05] MEDS ORDERED: IPRATROPIUM BROM 0.5MG/2.5ML NEB PRN (18:26)
[2018-11-05] MEDS: INSULIN -REGULAR HUMAN 50 UNIT/0.5 ML ML SQ SCH ×2 (18:26→21:00)
[2018-11-05] MEDS: FUROSEMIDE 20 MG/ 2ML VIAL IV SCH (18:38)
[2018-11-05 23:09] VITALS: BMI 33.4
[2018-11-06 06:25] LABS: Absolute Lymphocytes (CBC) 1.4 K/uL (0.7-4.9); Absolute Monocytes 0.9 K/uL (0.1-1.3); Absolute Neutrophil 5.2 K/uL (1.8-8.0); Basophils % 1.3 % (0-1.3); Eosinophils % 4.7 % (0-4.4); Hematocrit 38.6 % (39.6-49.0); Lymphocytes % 17.8 % (15.3-44.8); MPV 8.9 fL (7.6-11.3); Monocytes % 11.5 % (3.3-12.3); RBC Red Blood Cell Count 4.59 M/uL (4.33-5.43)
[2018-11-06 07:00] LABS: Potassium 3.9 mmol/L (3.5-5.1)
[2018-11-06] MEDS: INSULIN -REGULAR HUMAN 50 UNIT/0.5 ML ML SQ SCH ×2 (07:30→11:58)
--- NOTE | 2018-11-06 08:28 | RAD REPORT ---
EXAM DESCRIPTION: RAD - Chest Single View - 11/06/2018 6:47 am CLINICAL HISTORY: Chest Pain Chest pain. COMPARISON: Chest Single View dated 11/05/2018; Chest Single View dated 09/05/2018; CHEST SINGLE VIEW d ated 03/17/2008 FINDINGS: Portable technique limits examination quality. The lungs are underinflated but grossly clear. The heart is normal in size. No displaced fractures. IMPRESSION: Underinflated lungs.
[2018-11-06] MEDS: FUROSEMIDE 20 MG/ 2ML VIAL IV SCH (09:00)
[2018-11-06 09:39] VITALS: O2SAT 94
[2018-11-06 12:30] VITALS: BP 100/68; TEMP 98.4
--- NOTE | 2018-11-06 13:52 | CON ---
History Of Present Illness: Mr. Ryan came to the hospital unconscious. He was found to have a very low blood sugar. He woke up as soon as he got some D50. We have a blood sugar of 69 recorded but w e suspect it was much lower. I think the main reason I am called is because he has a troponin level of 0.1, 0.12 and 0.12. Mr. Ryan is not having chest pain. He has end-stage heart disease with carlie re coronary heart disease. In the early October or late September, he required several stents to be joel donald in his heart. He was in cardiogenic shock. He has come out of that. He is scheduled to get a d efibrillator placed. He is actually supposed to see the doctor yesterday when he had his syncope fro m hypoglycemia. Mr. Ryan has underlying diabetes, coronary heart disease, severely depressed ejecti on fraction. He takes Brilinta, insulin, aspirin, Entresto, carvedilol, furosemide, atorvastatin, an d metformin. Physical Examination: General: He is 5 feet 10 inches, 232 pounds. Alert, oriented, pleasant. No apparent neurological d eficit. HEENT: Normal. Lungs: No crackles or wheeze. Heart: Diffuse laterally displaced apical impulse, 1-2/6 holosystolic murmur. No diastolic murmur. Extremities: Trace edema. Distal pulses palpable. Impression: My impression is that Mr. Ryan had a hypoglycemic response. He has elevated troponins, do not indicate to me he has an acute coronary syndrome. He has a chronic severe heart condition ex acerbated by hypoglycemia. I would recommend he could be discharged with the reduced dose of insulin and follow through and get his defibrillator put in. His first appointment to see Dr. Correa is tomorrow at noon, definitely want t o discharge him today. GRAEME/ALLEN Voice ID: [id number] Report ID: [id number]
--- NOTE | 2018-11-07 11:25 | SS ---
Date of Discharge: 11/06/2018 History Of Present Illness: A 73-year-old male with type 2 diabetes on insulin. He was brought to [facility] emergency room because he apparently fainted and he had low blood sugar. The patient himself said that at home he felt shaky, sweaty and then he kind of like lost consciousness and his family tarsha t him to the emergency room. His blood sugar at the time was about 40. The patient did not have any chest pain. No nausea. No vomiting. No headache. No other complaints. Review of Systems: Neurological: As above. Cardiovascular: No complaints. Genitourinary: No complaints. Skeletomuscular: No complaints. Gastrointestinal: No complaints. Respiratory: No complaint. Past Medical History: 1.As above. Type 2 diabetes, with insulin. 2.Congestive heart failure. 3.Coronary artery disease. 4.History of arrhythmia. The patient supposed to have a procedure by Cardiology in [place], Dr. Home mccallum for a pacemaker. 5.Hyperlipidemia. 6.Hypertension. Past Surgical History: The patient has had knee surgeries and appendectomy in the past and had cardi ac stents placed. Social History: No smoking, alcohol, or drug abuse history. Family History: Noncontributory. Medications: Brilinta 90 mg p.o. b.i.d., atorvastatin 40 mg p.o. daily, metformin 500 mg p.o. b.i.d. , furosemide 40 mg p.o. daily, Entresto 1 p.o. b.i.d., Plavix 1 p.o. b.i.d. Lantus the patient was t aking 45 units b.i.d. Allergies: PENICILLINS AND STRAWBERRY. Physical Examination: Vital Signs: Blood pressure 90/55, pulse 73, temperature 97.2. Heart: Regular rate and rhythm. Chest: Clear to auscultation. Abdomen: Soft, nontender. No hepatosplenomegaly. Bowel sounds normoactive. Extremities: No edema. No cyanosis. Peripheral pulses are felt. Neurological Examination: Alert, oriented, nonfocal. Grossly intact. Diagnostic Data: Chest x-ray, no acute pathology. CBC; hemoglobin 12.4, hematocrit 38.6, platelets 239. Chemistry; BUN 52. Creatinine 1.69, has dropp ed this morning of BUN 37 and creatinine 1.20. Blood sugar fingersticks since admission been 131 and 141. Assessment And Plan: An episode of hypoglycemia causing fainting. The patient taking Lantus 45 unit s b.i.d. admitted the patient for observation. Stopped his diabetic medications. His blood sugar we nt up and he continued to have consciousness and had no complaints. Cardiology has seen the patient because the troponin was increased to 0.1. Dr. Munguia thought that the patient does not have any car diac issue that have caused him his loss of consciousness episode and recommended the patient to see Dr. Bacon in [place] tomorrow. At this time, the patient is clinically stable. We will discharge [facility]. I have instructed him not to take metformin and to take Lantus 45 units, not twice a day, only on ce a day in the morning. To monitor his blood sugar fingersticks and bring it with him on his follow up visit with me and have advised the patient not to skip any meals and also to take a late night sna ck between 11 and 12 midnight and I have explained all that. The patient understands and he will fol low up with me and also as mentioned with Cardiology. Look orders for details. MFS/MODL Voice ID: [id number] Report ID: [id number]
--- NOTE | 2018-11-12 11:07 | EKG ---
Test Date: 2018-11-05 Test Time: 14:11:24 Stripe Matcher: ANETTE MEASUREMENT RESULTS: Intervals: Rate: 70 MS: 188 QRSD: 174 QT: 502 QTc: 542 [place]: P: 66 MS: 188 QRS: 0 T: 120 INTERPRETIVE STATEMENTS: Normal sinus rhythm Left bundle branch block Abnormal ECG Compared to ECG 11/01/2018 13:29:03 No significant changes Electronically Signed On 11-05-18 16:59:30 CDT by Darci Munguia
--- NOTE | 2018-11-12 11:13 | EKG ---
Test Date: 2018-11-06 Test Time: 07:40:42 Golf Course Designer: NEHEMIAS MEASUREMENT RESULTS: Intervals: Rate: 73 SC: 206 QRSD: 184 QT: 484 QTc: 533 [place]: P: 50 SC: 206 QRS: -34 T: 108 INTERPRETIVE STATEMENTS: Normal sinus rhythm Left axis deviation Left bundle branch block Abnormal ECG Compared to ECG 11/05/2018 14:11:24 Left-axis deviation now present Electronically Signed On 11-06-18 10:50:23 CDT by Darci Munguia
== END 2018-11-06 14:05 | disposition home or self-care (01) ==
LOC: ER 13:04 → ERHOLD 15:54 → 2ND 18:15
PROVIDERS: ADMIT Internal Medicine; ATTEND Internal Medicine
DX: E11.649 Type 2 diabetes mellitus with hypoglycemia without coma (principal); E11.8 Type 2 diabetes mellitus with unspecified complications; I50.84 End stage heart failure; I25.10 Atherosclerotic heart disease of native coronary artery without angina pectoris; I11.0 Hypertensive heart disease with heart failure; E78.5 Hyperlipidemia, unspecified; Z88.0 Allergy status to penicillin; Z91.018 Allergy to other foods; Z79.84 Long term (current) use of oral hypoglycemic drugs; Z79.4 Long term (current) use of insulin
CPT/HCPCS: 93005 ×2; 85025 ×2; 80048 ×2; 36415; 83735; 85610; 82962 ×5; 80076; 81003; 84484 ×3; 83880 ×2; 71045 ×2; 99285; G0378 ×2; J1940

== ENCOUNTER 2019-08-01 12:33 | Emergency (ER) | payer OTHER, BC ==
[2019-08-01] MEDS ORDERED: TRAMADOL HCL 50 MG TAB ONE (13:19)
--- NOTE | 2019-08-01 13:47 | RAD REPORT ---
EXAM DESCRIPTION: RAD - Elbow Left 3 View - 08/01/2019 1:33 pm CLINICAL HISTORY: Nontraumatic left elbow pain COMPARISON: None. FINDINGS: No fracture is identified and no elevated posterior fat pad. There is no dislocation or pe riosteal reaction noted. Calcifications are present at the triceps tendon attachment to the olecrano n. Prominent articular marginal spurs are present at the humerus ulna articulation anteriorly. Mild edema changes are seen in the posterior subcutaneous fat. No foreign body. IMPRESSION: Left elbow degenerative changes are present as detailed. No acute or destructive finding .
--- NOTE | 2019-08-01 13:48 | RAD REPORT ---
EXAM DESCRIPTION: RAD - Wrist Left 3 View - 08/01/2019 1:33 pm CLINICAL HISTORY: Left elbow pain, left wrist pain COMPARISON: None. FINDINGS: No fracture is identified. There is no dislocation or periosteal reaction noted. Degenerat favian cystic changes are seen in the scaphoid bone near the articulation with the trapezium. Slight tee rowing of the radiocarpal joint space noted. There degenerative changes at the trapezium first metaca rpal articulation. Soft tissues appear swollen around the dorsal margin of the wrist. Arterial calcifications are presen t. No foreign body in the soft tissues. IMPRESSION: Left wrist degenerative changes are present as detailed. No fracture or acute finding se en.
--- NOTE | 2019-08-01 14:11 | EDPHYS ---
Physician Documentation [facility] [place] [place] Name: Ion Ryan Age: 74 yrs Sex: Male : 1945 Arrival Date: 08/01/2019 Time: 12:37 Bed 17 Private MD: Allison Khan F ED Physician Brody Shah HPI: 08/01 13:08 This 74 yrs old Male presents to ER via Ambulatory with complaints of Arm la1 Pain. 13:08 The patient or guardian complains of pain, that is acute. The complaints affect the la1 left wrist and left elbow. Context: The problem was sustained at an unknown location, resulted from unknown cause. Onset: The symptoms/episode began/occurred 3 day(s) ago. Treatment prior to arrival includes: over the counter medications, Tylenol. Modifying factors: The symptoms are alleviated by nothing. the symptoms are aggravated by movement, bending arm. Associated signs and symptoms: Pertinent positives: decreased range of motion, pain, Pertinent negatives: erythema, fever, weakness. Severity of symptoms: At their worst the symptoms were moderate. The patient has experienced a previous episode, many years ago, and the symptoms today are exactly the same. Historical: - Allergies: 12:54 PENICILLINS; hb 12:54 [place]; hb - Home Meds: 12:54 aspirin 81 mg Oral TbEC 1 tab once daily [Active]; atorvastatin 40 mg Oral tab 1 tab hb once daily [Active]; clopidogrel 3.125 Oral tab 1 tab twice daily [Active]; Entresto 24-26 mg Oral tab 1 tab twice a day [Active]; furosemide 40 mg Oral tab 1 tab once daily [Active]; Lantus 100 unit/mL Sub-Q soln 45 unit twice a day [Active]; lisinopril 5 mg Oral tab 1 tab once daily [Active]; metformin 500 mg Oral tab 2 tabs 2 times per day [Active]; - PMHx: 12:54 CHF; Diabetes - IDDM; Hyperlipidemia; Hypertension; Myocardial infarction; hb - PSHx: 12:54 cardiac stentsx2; Appendectomy; cataracts; Knee surgery; Carpal Tunnel Repair; hb - Immunization history:: Adult Immunizations up to date. - Social history:: Smoking status: Patient/guardian denies using tobacco. - Ebola Screening: : No symptoms or risks identified at this time. ROS: 13:10 Constitutional: Negative for fever, chills, and weight loss, Eyes: Negative for injury, la1 pain, redness, and discharge, ENT: Negative for injury, pain, and discharge, Neck: Negative for injury, pain, and swelling, Cardiovascular: Negative for chest pain, palpitations, and edema, Respiratory: Negative for shortness of breath, cough, wheezing, and pleuritic chest pain, Abdomen/GI: Negative for abdominal pain, nausea, vomiting, diarrhea, and constipation, Back: Negative for injury and pain, : Negative for injury, bleeding, discharge, and swelling, Skin: Negative for injury, rash, and discoloration, Neuro: Negative for headache, weakness, numbness, tingling, and seizure. 13:10 MS/extremity: Positive for pain, of the left elbow and left wrist. Exam: 13:11 Constitutional: This is a well developed, well nourished patient who is awake, alert, la1 and in no acute distress. Head/Face: Normocephalic, atraumatic. Eyes: Pupils equal round and reactive to light, extra-ocular motions intact. Periorbital areas with no swelling, redness, or edema. ENT: Mucous membranes moist. Neck: Trachea midline, no thyromegaly or masses palpated, and no cervical lymphadenopathy. Supple, full range of motion without nuchal rigidity, or vertebral point tenderness. No Meningismus. Chest/axilla: Normal chest wall appearance and motion. Nontender with no deformity. No lesions are appreciated. Cardiovascular: Regular rate and rhythm with a normal S1 and S2. No gallops, murmurs, or rubs. Normal PMI, no JVD. No pulse deficits. 13:11 Musculoskeletal/extremity: ROM: limited active range of motion due to pain, limited passive range of motion due to pain, in the left elbow and left wrist, Circulation is intact in all extremities. the dorsal aspect of distal phalanx of left little finger, dorsal aspect of middle phalanx of left little finger, dorsal aspect of proximal phalanx of left little finger, palmar aspect of distal phalanx of left little finger, palmar aspect of middle phalanx of left little finger and palmar aspect of proximal phalanx of left little finger Tingling of extremity. numbness, pt states has had his whole life from childhood injury Joints: All joints are normal except the left elbow displays painful range of motion, the left wrist displays painful range of motion. Vital Signs: 12:54 BP 96 / 66; Pulse 78; Resp 16; Temp 97.9; Pulse Ox 100% ; Weight 105.69 kg; Height 5 hb ft. 11 in. (180.34 cm); Pain 10/10; 14:20 BP 100 / 75; Pulse 75; Resp 16; Pulse Ox 100% on R/A; ae4 12:54 Body Mass Index 32.50 (105.69 kg, 180.34 cm) hb MDM: 12:53 Patient medically screened. la1 14:08 Differential diagnosis: dislocation, closed fracture, tendonitis, septic joint. Data la1 reviewed: vital signs, nurses notes, radiologic studies, and as a result, I will discharge patient. Data interpreted: Pulse oximetry: on room air is 100 %. Interpretation: normal. Counseling: I had a detailed discussion with the patient and/or guardian regarding: the historical points, exam findings, and any diagnostic results supporting the discharge/admit diagnosis, radiology results, the need for outpatient follow up, a orthopedic surgeon, to return to the emergency department if symptoms worsen or persist or if there are any questions or concerns that arise at home. 08/01 13:05 Order name: Elbow Left 3 View XRAY; Complete Time: 13:57 la1 08/01 13:05 Order name: Wrist Left (3 View) XRAY; Complete Time: 13:57 la1 08/01 14:08 Order name: Wrist Splint: velco-left; Complete Time: 14:20 la1 Administered Medications: 13:18 Drug: traMADol 50 mg Route: PO; ae4 14:09 Follow up: Response: No adverse reaction; Pain is decreased; RASS: Alert and Calm (0) ae4 Disposition: 15:26 Co-signature as Attending Physician, Brody Shah MD I agree with the assessment and kdr plan of care. Disposition: 08/01/19 14:09 Discharged to Home. Impression: Pain in left wrist, Pain in left elbow. - Condition is Stable. - Discharge Instructions: Joint Pain, Arthritis, Musculoskeletal Pain, Wrist Pain. - Prescriptions for Tramadol 50 mg Oral Tablet - take 1 tablet by ORAL route every 8 hours as needed; 12 tablet. - Medication Reconciliation Form, Thank You Letter, Prescription Opioid Use form. - Follow up: Private Physician; When: 2 - 3 days; Reason: Recheck today's complaints, Re-evaluation by your physician. Follow up: Emergency Department; When: As needed. - Problem is new. - Symptoms have improved. Signatures: Dispatcher [employer] EDMS Brody Shah MD MD [facility] Naveed Larry, COMPUTER NETWORK AND SYSTEMS ENGINEER-C COMPUTER NETWORK AND SYSTEMS ENGINEER-Cla1 Holly Painter RN RN Fortunato Taylor RN RN ae4 Corrections: (The following items were deleted from the chart) 14:34 14:09 08/01/2019 14:09 Discharged to Home. Impression: Pain in left wrist; Pain in left ae4 elbow. Condition is Stable. Forms are Medication Reconciliation Form, Thank You Letter, Antibiotic Education, Prescription Opioid Use. Follow up: Private Physician; When: 2 - 3 days; Reason: Recheck today's complaints, Re-evaluation by your physician. Follow up: Emergency Department; When: As needed. Problem is new. Symptoms have improved. la1
--- NOTE | 2019-08-01 14:11 | ER ---
Nurse's Notes [facility] Name: Ion Ryan Age: 74 yrs Sex: Male : 1945 Arrival Date: 08/01/2019 Time: 12:37 Bed 17 Private MD: Allison Khan F Diagnosis: Pain in left wrist;Pain in left elbow Presentation: 08/01 12:52 Presenting complaint: Left elbow and wrist pain 05/15. Denies injury. Transition of hb care: patient was not received from another setting of care. Onset of symptoms was July 26, 2019. Risk Assessment: Do you want to hurt yourself or someone else? Patient reports no desire to harm self or others. Initial Sepsis Screen: Does the patient meet any 2 criteria? No. Patient's initial sepsis screen is negative. Does the patient have a suspected source of infection? No. Patient's initial sepsis screen is negative. Care prior to arrival: None. 12:52 Method Of Arrival: Ambulatory hb 12:52 Acuity: LEO 4 hb Historical: - Allergies: 12:54 PENICILLINS; hb 12:54 [place]; hb - Home Meds: 12:54 aspirin 81 mg Oral TbEC 1 tab once daily [Active]; atorvastatin 40 mg Oral tab 1 tab hb once daily [Active]; clopidogrel 3.125 Oral tab 1 tab twice daily [Active]; Entresto 24-26 mg Oral tab 1 tab twice a day [Active]; furosemide 40 mg Oral tab 1 tab once daily [Active]; Lantus 100 unit/mL Sub-Q soln 45 unit twice a day [Active]; lisinopril 5 mg Oral tab 1 tab once daily [Active]; metformin 500 mg Oral tab 2 tabs 2 times per day [Active]; - PMHx: 12:54 CHF; Diabetes - IDDM; Hyperlipidemia; Hypertension; Myocardial infarction; hb - PSHx: 12:54 cardiac stentsx2; Appendectomy; cataracts; Knee surgery; Carpal Tunnel Repair; hb - Immunization history:: Adult Immunizations up to date. - Social history:: Smoking status: Patient/guardian denies using tobacco. - Ebola Screening: : No symptoms or risks identified at this time. Screenin:19 Abuse screen: Denies threats or abuse. Nutritional screening: No deficits noted. ae4 Tuberculosis screening: No symptoms or risk factors identified. Fall Risk None identified. Assessment: 13:01 General: Appears in no apparent distress. uncomfortable, Behavior is calm, cooperative. ae4 Pain: Complains of pain in left arm. Neuro: Level of Consciousness is awake, alert, obeys commands, Oriented to person, place, time, situation, Appropriate for age. 14:04 Reassessment: Provider at bedside discussing plan of care. ae4 Vital Signs: 12:54 BP 96 / 66; Pulse 78; Resp 16; Temp 97.9; Pulse Ox 100% ; Weight 105.69 kg; Height 5 hb ft. 11 in. (180.34 cm); Pain 10/10; 14:20 BP 100 / 75; Pulse 75; Resp 16; Pulse Ox 100% on R/A; ae4 12:54 Body Mass Index 32.50 (105.69 kg, 180.34 cm) hb ED Course: 12:37 Patient arrived in ED. as 12:37 Allison Khan MD is Private Physician. as 12:53 Naveed Larry FNP-C [facility]. la1 12:53 Brody Shah MD is Attending Physician. la1 12:53 Triage completed. hb 12:54 Arm band placed on. hb 13:12 Fortunato Taylor, RN is Primary Nurse. ae4 13:40 Elbow Left 3 View XRAY In Process Unspecified. EDMS 13:40 Wrist Left (3 View) XRAY In Process Unspecified. EDMS 14:10 Patient has correct armband on for positive identification. Bed in low position. Call ae4 light in reach. Side rails up X 1. 14:10 No provider procedures requiring assistance completed. Patient did not have IV access ae4 during this emergency room visit. Administered Medications: 13:18 Drug: traMADol 50 mg Route: PO; ae4 14:09 Follow up: Response: No adverse reaction; Pain is decreased; RASS: Alert and Calm (0) ae4 Outcome: 14:09 Discharge ordered by . la1 14:33 Discharged to home via wheelchair, with family. ae4 14:33 Condition: stable 14:33 Discharge instructions given to patient, Instructed on discharge instructions, follow up and referral plans. medication usage, Demonstrated understanding of instructions, Prescriptions given X 1. 14:34 Patient left the ED. ae4 Signatures: Dispatcher [employer] Katia Oshea Lee, MEDICAL OFFICE COORDINATOR-C MEDICAL OFFICE COORDINATOR-Cla1 Holly Painter, RN RN Fortunato Taylor RN RN ae4
[2019-08-01 14:38] VITALS: TEMP 97.9; O2SAT 100
[2019-08-01 14:39] VITALS: BP 100/75
== END 2019-08-01 14:34 | disposition home or self-care (01) ==
LOC: ER 12:33
DX: M25.522 Pain in left elbow (principal); I10 Essential (primary) hypertension; E11.9 Type 2 diabetes mellitus without complications; Z79.4 Long term (current) use of insulin; E78.5 Hyperlipidemia, unspecified; I50.9 Heart failure, unspecified; Z79.82 Long term (current) use of aspirin; Z88.0 Allergy status to penicillin; Z91.018 Allergy to other foods; Z95.818 Presence of other cardiac implants and grafts
CPT/HCPCS: 99283

== ENCOUNTER 2019-08-25 17:20 | Emergency (ER) | payer OTHER, BC ==
[2019-08-25] MEDS ORDERED: D5 0.9 NS 1,000 ML IV ONE (17:52)
[2019-08-25] MEDS ORDERED: COLCHICINE 0.6 MG TAB ONE (17:52)
[2019-08-25 17:58] LABS: Absolute Lymphocytes (CBC) 1.3 K/uL (0.7-4.9); Basophils % 1.2 % (0-1.3); Hematocrit 34.9 % (39.6-49.0); Lymphocytes % 14.3 % (15.3-44.8); MPV 8.9 fL (7.6-11.3); RBC Red Blood Cell Count 4.11 M/uL (4.33-5.43)
[2019-08-25 18:31] LABS: Albumin 3.3 g/dL (3.4-5.0); Bilirubin Direct 0.2 mg/dL (0-0.2); Bilirubin Total 0.6 mg/dL (0.2-1.0); Potassium 4.9 mmol/L (3.5-5.1); Protein, Total 6.1 g/dL (6.4-8.2); Uric Acid 9.7 mg/dL (3.5-7.2)
--- NOTE | 2019-08-25 19:00 | ER ---
Nurse's Notes [facility] Name: Ion Ryan Age: 74 yrs Sex: Male : 1945 Arrival Date: 08/25/2019 Time: 17:34 Bed 5 Private MD: Diagnosis: Gout due to renal impairment, left elbow;Gout due to renal impairment, left wrist;Hypoglycemia, unspecified Presentation: 08/25 17:35 Presenting complaint: EMS states: pt reports having low blood sugar yesterday and sg today, reports not eating very well yesterday or today. pt reports having pain and swelling to the left elbow as well, reports having hx of gout in the left hand. Transition of care: patient was not received from another setting of care. Onset of symptoms was August 25, 2019. Risk Assessment: Do you want to hurt yourself or someone else? Patient reports no desire to harm self or others. Initial Sepsis Screen: Does the patient meet any 2 criteria? No. Patient's initial sepsis screen is negative. Does the patient have a suspected source of infection? No. Patient's initial sepsis screen is negative. Care prior to arrival: Medication(s) given: D50, 3/4 amp iv tylenol IV initiated. 20 GA, in the right forearm, Glucose check: 67. 17:35 Method Of Arrival: EMS: [facility] sg 17:35 Acuity: LEO 3 sg Historical: - Allergies: 17:39 PENICILLINS; sg 17:39 [place]; sg 17:39 [place]; sg - Home Meds: 17:39 metformin 500 mg Oral tab 2 tabs 2 times per day [Active]; lisinopril 5 mg Oral tab 1 sg tab once daily [Active]; Lantus 100 unit/mL Sub-Q soln 45 unit twice a day [Active]; furosemide 40 mg Oral tab 1 tab once daily [Active]; Entresto 24-26 mg Oral tab 1 tab twice a day [Active]; atorvastatin 40 mg Oral tab 1 tab once daily [Active]; aspirin 81 mg Oral TbEC 1 tab once daily [Active]; clopidogrel 3.125 Oral tab 1 tab twice daily [Active]; - PMHx: 17:39 CHF; Diabetes - IDDM; Hyperlipidemia; Hypertension; Myocardial infarction; sg - PSHx: 17:39 cardiac stentsx2; Appendectomy; cataracts; Knee surgery; Carpal Tunnel Repair; sg - Immunization history:: Adult Immunizations up to date. - Social history:: Smoking status: Patient denies any tobacco usage or history of. - Ebola Screening: : Patient negative for fever greater than or equal to 101.5 degrees Fahrenheit, and additional compatible Ebola Virus Disease symptoms Patient denies exposure to infectious person Patient denies travel to an Ebola-affected area in the 21 days before illness onset No symptoms or risks identified at this time. Screenin:43 Abuse screen: Denies threats or abuse. Denies injuries from another. Nutritional sg screening: No deficits noted. Tuberculosis screening: No symptoms or risk factors identified. Never had TB. Fall Risk None identified. Assessment: 17:40 General: Appears in no apparent distress. well groomed, well developed, well nourished, sg Behavior is calm, cooperative, appropriate for age. Pain: Complains of pain in left elbow Quality of pain is described as aching. Neuro: Level of Consciousness is awake, alert, obeys commands, Oriented to person, place, time, Computer Security Manager are equal bilaterally Moves all extremities. Speech is normal, Facial symmetry appears normal, Pupils are PERRLA. Cardiovascular: Heart tones S1 S2 present Chest pain is denied. Respiratory: Airway is patent Respiratory effort is even, unlabored, Respiratory pattern is regular, symmetrical, Breath sounds are clear. GI: Abdomen is round non-distended. : No signs and/or symptoms were reported regarding the genitourinary system. EENT: No signs and/or symptoms were reported regarding the EENT system. Derm: Skin is pale, Skin temperature is warm. Musculoskeletal: Circulation, motion, and sensation intact. Range of motion: intact in all extremities, Swelling present in left elbow. 19:18 General: Appears in no apparent distress. Behavior is calm, cooperative, appropriate ea for age. Pain: Complains of pain in left arm. Neuro: Level of Consciousness is awake, alert, obeys commands, Oriented to person, place, time. Cardiovascular: Patient's skin is warm and dry. Respiratory: Airway is patent Respiratory effort is even, unlabored, Respiratory pattern is regular, symmetrical. Derm: Skin is fragile, Skin is pale, Skin temperature is warm. Musculoskeletal: Circulation, motion, and sensation intact. 19:19 Reassessment: Pt calling family for transportation home. ea 19:42 Reassessment: Patient and/or family updated on plan of care and expected duration. Pain ea level reassessed. Patient is alert, oriented x 3, equal unlabored respirations, skin warm/dry/pink. Discharge instruction given to patient, verbalized the understanding of instruction. Pt left ED via wheelchair per daughter, pt tolerating well. Vital Signs: 17:39 BP 102 / 62; Pulse 65; Resp 16; Temp 97.6; Pulse Ox 99% on R/A; Pain 4/10; sg 19:21 BP 94 / 74; Pulse 71; Resp 18; Pulse Ox 99% on R/A; ea ED Course: 17:34 Patient arrived in ED. sg 17:37 Triage completed. sg 17:37 Arm band placed on. sg 17:39 Frederick Ornelas MD is Attending Physician. tw4 17:39 Initial lab(s) drawn, by me, held in ED. Maintain EMS IV. Dressing intact. Site clean \T\ sg dry. Gauge \T\ site: 20 RFA. IV is patent, is intact, with good blood return, Flushed right forearm with 5 ml normal saline. 17:44 Krunal Hernández, RN is Primary Nurse. sg 17:45 Patient has correct armband on for positive identification. Bed in low position. Call sg light in reach. Side rails up X2. Pulse ox on. NIBP on. Warm blanket given. Head of bed elevated. 19:19 No provider procedures requiring assistance completed. ea 19:38 IV discontinued, intact, bleeding controlled, No redness/swelling at site. Pressure ea dressing applied. Administered Medications: 17:56 Drug: D5-NS 1000 ml Route: IV; Rate: 125 ml/hr; Site: right forearm; sg 17:57 Drug: Colchicine-Probenecid 1 tabs Route: PO; sg 19:21 Follow up: Response: No adverse reaction ea 19:04 Drug: morphine 4 mg Route: IVP; Site: right forearm; sg 19:21 Follow up: Response: No adverse reaction ea 19:21 Follow up: Response: RASS: Alert and Calm (0) ea 19:07 Drug: Zofran 4 mg Route: IVP; Site: right forearm; sg 19:21 Follow up: Response: No adverse reaction ea Point of Care Testing: Blood Glucose: 17:39 Blood Glucose: 83 mg/dL; sg Ranges: Outcome: 18:59 Discharge ordered by . [email or web address] 19:41 Discharged to home via wheelchair, with family. david 19:41 Condition: stable 19:41 Discharge instructions given to patient, Instructed on discharge instructions, follow up and referral plans. medication usage, Demonstrated understanding of instructions, follow-up care, medications, Prescriptions given X 2. 19:42 Patient left the ED. david Signatures: Krunal Hernández RN RN sg Antunez, Elena RN Frederick Oliva ea, MD MD tw4
--- NOTE | 2019-08-25 19:00 | EDPHYS ---
Physician Documentation [facility] Name: Ion Ryan Age: 74 yrs Sex: Male : 1945 Arrival Date: 08/25/2019 Time: 17:34 Bed 5 Private MD: ED Physician Frederick Ornelas HPI: 08/25 18:11 This 74 yrs old Male presents to ER via EMS with complaints of Low Blood tw4 Sugar, Pain - L elbow. 18:11 The patient or guardian reports hypoglycemia. Onset: The symptoms/episode tw4 began/occurred today. Associated signs and symptoms: Pertinent positives: None. left arm pain. The patient has not experienced similar symptoms in the past. Historical: - Allergies: 17:39 PENICILLINS; sg 17:39 [place]; sg 17:39 silk; sg - Home Meds: 17:39 metformin 500 mg Oral tab 2 tabs 2 times per day [Active]; lisinopril 5 mg Oral tab 1 sg tab once daily [Active]; Lantus 100 unit/mL Sub-Q soln 45 unit twice a day [Active]; furosemide 40 mg Oral tab 1 tab once daily [Active]; Entresto 24-26 mg Oral tab 1 tab twice a day [Active]; atorvastatin 40 mg Oral tab 1 tab once daily [Active]; aspirin 81 mg Oral TbEC 1 tab once daily [Active]; clopidogrel 3.125 Oral tab 1 tab twice daily [Active]; - PMHx: 17:39 CHF; Diabetes - IDDM; Hyperlipidemia; Hypertension; Myocardial infarction; sg - PSHx: 17:39 cardiac stentsx2; Appendectomy; cataracts; Knee surgery; Carpal Tunnel Repair; sg - Immunization history:: Adult Immunizations up to date. - Social history:: Smoking status: Patient denies any tobacco usage or history of. - Ebola Screening: : Patient negative for fever greater than or equal to 101.5 degrees Fahrenheit, and additional compatible Ebola Virus Disease symptoms Patient denies exposure to infectious person Patient denies travel to an Ebola-affected area in the 21 days before illness onset No symptoms or risks identified at this time. ROS: 18:11 Constitutional: Negative for fever, chills, and weight loss, Eyes: Negative for injury, tw4 pain, redness, and discharge, Cardiovascular: Negative for chest pain, palpitations, and edema, Respiratory: Negative for shortness of breath, cough, wheezing, and pleuritic chest pain, Abdomen/GI: Negative for abdominal pain, nausea, vomiting, diarrhea, and constipation, Back: Negative for injury and pain, Skin: Negative for injury, rash, and discoloration, Neuro: Negative for headache, weakness, numbness, tingling, and seizure. 18:11 MS/extremity: Positive for decreased range of motion, pain, swelling, tenderness, of the left antecubital area and left wrist. Exam: 18:11 Constitutional: This is a well developed, well nourished patient who is awake, alert, tw4 and in no acute distress. Head/Face: Normocephalic, atraumatic. Chest/axilla: Normal chest wall appearance and motion. Nontender with no deformity. No lesions are appreciated. Cardiovascular: Regular rate and rhythm with a normal S1 and S2. No gallops, murmurs, or rubs. Normal PMI, no JVD. No pulse deficits. Respiratory: Lungs have equal breath sounds bilaterally, clear to auscultation and percussion. No rales, rhonchi or wheezes noted. No increased work of breathing, no retractions or nasal flaring. Abdomen/GI: Soft, non-tender, with normal bowel sounds. No distension or tympany. No guarding or rebound. No evidence of tenderness throughout. Neuro: Awake and alert, GCS 15, oriented to person, place, time, and situation. Cranial nerves II-XII grossly intact. Motor strength 5/5 in all extremities. Sensory grossly intact. Cerebellar exam normal. Normal gait. 18:11 Musculoskeletal/extremity: Extremities: noted in the left antecubital area and left wrist: pain, swelling, tenderness. Vital Signs: 17:39 BP 102 / 62; Pulse 65; Resp 16; Temp 97.6; Pulse Ox 99% on R/A; Pain 4/10; sg 19:21 BP 94 / 74; Pulse 71; Resp 18; Pulse Ox 99% on R/A; ea MDM: 17:39 Patient medically screened. tw4 18:13 Differential diagnosis: Yari's syndrome, diabetes insipidus. Data reviewed: vital tw4 signs, nurses notes. Data interpreted: Pulse oximetry: Interpretation: normal. Test interpretation: by ED physician or midlevel provider: ECG. Counseling: I had a detailed discussion with the patient and/or guardian regarding: the historical points, exam findings, and any diagnostic results supporting the discharge/admit diagnosis. 18:48 Medical screen evaluation completed. EMTALA emergency medical condition absent. tw Medication response: colchicine. Response to treatment: the patient's symptoms have mildly improved after treatment, and as a result, I will discharge patient. 08/25 17:40 Order name: Basic Metabolic Panel; Complete Time: 18:35 [facility] 08/25 18:37 Interpretation: Normal except: BUN 26; CL 111; GLUC 140; CRE 1.35; GFR 52. [facility] 08/25 17:40 Order name: CBC with Diff; Complete Time: 18:14 [facility] 08/25 18:14 Interpretation: Normal except: RBC 4.11; HGB 11.3; HCT 34.9; RDW 17.1. [facility] 08/25 17:40 Order name: Creatinine for Radiology [facility] 08/25 17:40 Order name: Hepatic Function; Complete Time: 18:35 [facility] 08/25 18:37 Interpretation: Normal except: TP 6.1; ALB 3.3. [facility] 08/25 17:40 Order name: Lipase; Complete Time: 18:35 [facility] 08/25 18:37 Interpretation: Abnormal: LIP 57. [facility] 08/25 17:40 Order name: Uric Acid; Complete Time: 18:35 [facility] 08/25 18:37 Interpretation: Abnormal: URIC 9.7. [facility] 08/25 17:40 Order name: IV Saline Lock; Complete Time: 17:44 [facility] 08/25 17:40 Order name: Labs collected and sent; Complete Time: 17:44 [facility] 08/25 17:45 Order name: Glucose, Ancillary Testing; Complete Time: 18:14 [facility] 08/25 18:14 Interpretation: Within normal limits. [facility] 08/25 17:55 Order name: Diet Regular; Complete Time: 17:55 ss Administered Medications: 17:56 Drug: D5-NS 1000 ml Route: IV; Rate: 125 ml/hr; Site: right forearm; sg 17:57 Drug: Colchicine-Probenecid 1 tabs Route: PO; sg 19:21 Follow up: Response: No adverse reaction ea 19:04 Drug: morphine 4 mg Route: IVP; Site: right forearm; sg 19:21 Follow up: Response: No adverse reaction ea 19:21 Follow up: Response: RASS: Alert and Calm (0) ea 19:07 Drug: Zofran 4 mg Route: IVP; Site: right forearm; sg 19:21 Follow up: Response: No adverse reaction david Point of Care Testing: Blood Glucose: 17:39 Blood Glucose: 83 mg/dL; sg Ranges: Critical Glucose Levels:Adult <50 mg/dl or >400 mg/dl <40 mg/dl or >180 mg/dl Disposition: 08/25/19 18:59 Discharged to Home. Impression: Gout due to renal impairment, left wrist, Gout due to renal impairment, left elbow, Hypoglycemia, unspecified. - Condition is Stable. - Discharge Instructions: Gout, Hypoglycemia, [id number]. - Prescriptions for Colchicine- Probenecid 0.5-500 mg Oral Tablet - take 1 tablet by ORAL route every 1 hour up to 3 hours; 3 tablet. Tramadol 50 mg Oral Tablet - take 1 tablet by ORAL route every 8 hours as needed; 12 tablet. - Medication Reconciliation Form, Thank You Letter, Antibiotic Education, Prescription Opioid Use form. - Follow up: Private Physician; When: Upon discharge from the Emergency Department; Reason: Recheck today's complaints, Continuance of care. - Problem is new. - Symptoms have improved. Signatures: Dispatcher [employer] EDKrunal Yepez RN Mary Lombardo RN Frederick Oliva ea, MD MD tw4 Corrections: (The following items were deleted from the chart) 19:42 18:59 08/25/2019 18:59 Discharged to Home. Impression: Gout due to renal impairment, ea left wristGout due to renal impairment, left elbow; Hypoglycemia, unspecified. Condition is Stable. Forms are Medication Reconciliation Form, Thank You Letter, Antibiotic Education, Prescription Opioid Use. Follow up: Private Physician; When: Upon discharge from the Emergency Department; Reason: Recheck today's complaints, Continuance of care. Problem is new. Symptoms have improved. tw4
[2019-08-25] MEDS ORDERED: MORPHINE 4 MG/ML SYR ONE (19:02)
[2019-08-25] MEDS ORDERED: ONDANSETRON 4 MG/2 ML VIAL ONE (19:03)
[2019-08-25 22:50] VITALS: TEMP 97.6; O2SAT 99
[2019-08-25 22:52] VITALS: BP 94/74
== END 2019-08-25 19:42 | disposition home or self-care (01) ==
LOC: ER 17:20
DX: M10.3 Gout due to renal impairment (principal); E11.649 Type 2 diabetes mellitus with hypoglycemia without coma; I10 Essential (primary) hypertension; E78.5 Hyperlipidemia, unspecified; I50.9 Heart failure, unspecified; I25.2 Old myocardial infarction; Z79.4 Long term (current) use of insulin; Z79.82 Long term (current) use of aspirin; Z88.0 Allergy status to penicillin; Z91.018 Allergy to other foods; Z91.048 Other nonmedicinal substance allergy status; Z95.818 Presence of other cardiac implants and grafts
CPT/HCPCS: 85025; 80048; 36415; 82947; 80076; 84550; 83690; 96375; 96374; 99284; J7042; J2405

== ENCOUNTER 2019-09-14 11:49 | Emergency (ER) | payer OTHER, BC ==
[2019-09-14] MEDS ORDERED: D50W 25 GM/50 ML SYRINGE/VIAL IV ONE (12:19)
[2019-09-14 12:23] LABS: Absolute Lymphocytes (CBC) 0.8 K/uL (0.7-4.9); Basophils % 0.5 % (0-1.3); Hematocrit 32.8 % (39.6-49.0); Lymphocytes % 9.4 % (15.3-44.8); MPV 8.8 fL (7.6-11.3); RBC Red Blood Cell Count 3.92 M/uL (4.33-5.43)
[2019-09-14 12:36] LABS: Bilirubin Direct 0.2 mg/dL (0-0.2); Bilirubin Total 0.4 mg/dL (0.2-1.0); Potassium 4.8 mmol/L (3.5-5.1)
--- NOTE | 2019-09-14 12:36 | RAD REPORT ---
EXAM DESCRIPTION: CT - Head Brain Wo Cont - 09/14/2019 12:28 pm CLINICAL HISTORY: MENTAL STATUS CHANGE Headache, drowsiness COMPARISON: No comparisons TECHNIQUE: All CT scans are performed using dose optimization technique as appropriate and may inclu de automated exposure control or mA/KV adjustment according to patient size. FINDINGS: No intracranial hemorrhage, hydrocephalus or extra-axial fluid collection.Mild generalized brain atrophy is present with mild periventricular and deep white matter chronic microvascular ische jace changes.No areas of brain edema or evidence of midline shift. The paranasal sinuses and mastoids are clear. The calvarium is intact. IMPRESSION: No acute intracranial abnormality.
--- NOTE | 2019-09-14 14:48 | ER ---
Nurse's Notes [facility] Name: Ion Ryan Age: 74 yrs Sex: Male : 1945 Arrival Date: 09/14/2019 Time: 11:54 Bed 18 Private MD: Diagnosis: Hypoglycemia, unspecified Presentation: 09/14 11:55 Presenting complaint: EMS states: EMS CALLED OUT FOR AMS AND SLURRED SPEECH, BGL ON bp SCENE 32. Transition of care: patient was not received from another setting of care. Onset of symptoms is unknown. Risk Assessment: Do you want to hurt yourself or someone else? Patient reports no desire to harm self or others. Initial Sepsis Screen: Does the patient meet any 2 criteria? No. Patient's initial sepsis screen is negative. Does the patient have a suspected source of infection? No. Patient's initial sepsis screen is negative. Care prior to arrival: Medication(s) given: D50, 1/2 amp, IV initiated. 20 GA, in the left antecubital area, Glucose check: 88. 11:55 Method Of Arrival: EMS: [facility] bp 11:55 Acuity: LEO 3 bp Triage Assessment: 11:58 General: Appears in no apparent distress. comfortable, obese, Behavior is cooperative, bp appropriate for age, anxious. Pain: Complains of pain in left elbow. EENT: No deficits noted. Neuro: Level of Consciousness is awake, alert, obeys commands, Oriented to person, place, time, situation, Appropriate for age Mold Sander are equal bilaterally Speech is normal, Facial symmetry appears normal. Cardiovascular: No deficits noted. Respiratory: No deficits noted. GI: No signs and/or symptoms were reported involving the gastrointestinal system. : No signs and/or symptoms were reported regarding the genitourinary system. Derm: No deficits noted. Musculoskeletal: No deficits noted. Historical: - Allergies: 11:58 PENICILLINS; bp 11:58 silk; bp 11:58 [place]; bp - PMHx: 11:58 Myocardial infarction; Diabetes - IDDM; Hypertension; CHF; Hyperlipidemia; Gout; bp - Immunization history:: Adult Immunizations unknown. - Coronavirus screen:: The patient has NOT traveled to [place], [place], or [place] in the past 14 days. Proceed with normal triage process as indicated. The patient has NOT had contact with known/suspected case of Coronavirus? Proceed with normal triage procedures. - Social history:: Smoking status: Patient denies any tobacco usage or history of. - Ebola Screening: : No symptoms or risks identified at this time. Screenin:22 Abuse screen: Denies threats or abuse. Denies injuries from another. Nutritional bp screening: No deficits noted. Tuberculosis screening: No symptoms or risk factors identified. Fall Risk None identified. Assessment: 12:00 General: SEE TRIAGE NOTE. bp 12:22 Reassessment: Patient is alert, oriented x 3, equal unlabored respirations, skin bp warm/dry/pink. PT TO CT. 13:51 Reassessment: PT ASSISTED WITH MEAL BY FAMILY. bp Vital Signs: 11:58 Pulse 86; Resp 17; Temp 97.8; Pulse Ox 100% ; Weight 124.74 kg; bp 13:19 BP 95 / 60; Pulse 75; Resp 18; Temp 98.0(O); Pulse Ox 100% on R/A; mh5 13:51 BP 83 / 62; Pulse 77; Resp 19; Pulse Ox 100% ; bp 14:26 BP 81 / 58; Pulse 80; Resp 18; Temp 97.9(O); Pulse Ox 99% on R/A; mh5 14:38 BP 102 / 71; Pulse 83; Resp 19; Pulse Ox 100% on R/A; mh5 ED Course: 11:54 Patient arrived in ED. bp 11:54 Luis Shin MD is Attending Physician. rn 11:56 Triage completed. bp 11:58 Enrike Crenshaw NP is PHCP. pm1 11:58 Arm band placed on. bp 12:00 Maintain EMS IV. Dressing intact. Good blood return noted. Site clean \T\ dry. Gauge \T\ bp site: 20 GAUGE LEFT AC. 12:03 Domo Longoria, RN is Primary Nurse. bp 12:22 Patient has correct armband on for positive identification. Bed in low position. Call bp light in reach. Side rails up X2. Adult w/ patient. 12:28 CT completed. Patient tolerated procedure well. Patient moved back from CT. mw3 12:31 CT Head Brain wo Cont In Process Unspecified. EDMS 13:24 EKG done, by ED staff, reviewed by Enrike Crenshaw NP. mh5 14:47 Allison Khan MD is Referral Physician. pm1 15:05 No provider procedures requiring assistance completed. IV discontinued, intact, ss bleeding controlled, No redness/swelling at site. Pressure dressing applied. Administered Medications: 12:15 Drug: D50W 50 ml Route: IVP; Site: left antecubital; bp 13:52 Follow up: Response: Blood sugar is elevated bp Outcome: 14:47 Discharge ordered by MD. pm1 15:05 Discharged to home via wheelchair, with family. ss 15:05 Condition: improved 15:05 Discharge instructions given to patient, family, Instructed on discharge instructions, follow up and referral plans. Demonstrated understanding of instructions, follow-up care. 15:06 Patient left the ED. Signatures: Dispatcher [employer] EDMS Luis Shin MD MD rn Smirch, Shelby, RN RN Enrike Crenshaw, SPECIAL PROJECTS COORDINATOR SPECIAL PROJECTS COORDINATOR pm1 Cecelia Rangel 5 Domo Longoria RN RN Felisha Tavares mw3 Corrections: (The following items were deleted from the chart) 13:20 13:19 BP 95 / 60; Pulse 75bpm; Resp 18bpm; Pulse Ox 100% RA; mh5 5
--- NOTE | 2019-09-14 14:48 | EDPHYS ---
Physician Documentation [facility] Name: Ion Ryan Age: 74 yrs Sex: Male : 1945 Arrival Date: 09/14/2019 Time: 11:54 Bed 18 Private MD: ED Physician Luis Shin HPI: 09/14 12:00 This 74 yrs old Male presents to ER via EMS with complaints of Low Blood pm1 Sugar. 12:00 The patient or guardian reports hypoglycemia, that was potentially precipitated by Not pm1 eating, Treatment prior to arrival includes: EMS administered D50, checked blood sugar on arrival, which was 32, after treatment, the blood sugar was 88. Onset: The symptoms/episode began/occurred today. Associated signs and symptoms: Pertinent positives: diaphoresis, Pertinent negatives: nausea, chest pain, shortness of breath, headache, weakness. Current symptoms: In the emergency department the patient's symptoms have improved, markedly. The patient has experienced similar episodes in the past, a few times. The patient has not recently seen a physician. Patient last took his insulin yesterday morning. Takes insulin once daily. After taking his insulin yesterday he ate breakfast. Did not eat lunch or dinner yesterday. This AM he did not take his insulin but did not eat. Patient was acting altered per neighbor and on EMS arrival patient with 32 mg/dL finger stick and the EMS gave him half an amp of D50 and his recheck was 88 mg/dL. Patient reports he is at his baseline without any complaints after the glucose. Historical: - Allergies: 11:58 PENICILLINS; bp 11:58 silk; bp 11:58 [place]; bp - PMHx: 11:58 Myocardial infarction; Diabetes - IDDM; Hypertension; CHF; Hyperlipidemia; Gout; bp - Immunization history:: Adult Immunizations unknown. - Coronavirus screen:: The patient has NOT traveled to [place], [place], or [place] in the past 14 days. Proceed with normal triage process as indicated. The patient has NOT had contact with known/suspected case of Coronavirus? Proceed with normal triage procedures. - Social history:: Smoking status: Patient denies any tobacco usage or history of. - Ebola Screening: : No symptoms or risks identified at this time. ROS: 12:00 Constitutional: Negative for fever, chills, and weight loss, Eyes: Negative for injury, pm1 pain, redness, and discharge, ENT: Negative for injury, pain, and discharge, Neck: Negative for injury, pain, and swelling, Cardiovascular: Negative for chest pain, palpitations, and edema, Respiratory: Negative for shortness of breath, cough, wheezing, and pleuritic chest pain, Abdomen/GI: Negative for abdominal pain, nausea, vomiting, diarrhea, and constipation, Back: Negative for injury and pain, MS/Extremity: Negative for injury and deformity, Skin: Negative for injury, rash, and discoloration. 12:00 Neuro: Positive for altered mental status, Negative for numbness, tingling, weakness. Exam: 12:00 Constitutional: This is a well developed, well nourished patient who is awake, alert, pm1 and in no acute distress. Head/Face: Normocephalic, atraumatic. Chest/axilla: Normal chest wall appearance and motion. Nontender with no deformity. No lesions are appreciated. Cardiovascular: Regular rate and rhythm with a normal S1 and S2. No gallops, murmurs, or rubs. No pulse deficits. Respiratory: Lungs have equal breath sounds bilaterally, clear to auscultation and percussion. No rales, rhonchi or wheezes noted. No increased work of breathing, no retractions or nasal flaring. Abdomen/GI: Soft, non-tender, with normal bowel sounds. No distension or tympany. No guarding or rebound. No evidence of tenderness throughout. Back: No spinal tenderness. No costovertebral tenderness. Full range of motion. Skin: Warm, dry with normal turgor. Normal color with no rashes, no lesions, and no evidence of cellulitis. MS/ Extremity: Pulses equal, no cyanosis. Neurovascular intact. Full, normal range of motion. Neuro: Awake and alert, GCS 15, oriented to person, place, time, and situation. Cranial nerves II-XII grossly intact. Motor strength 5/5 in all extremities. Sensory grossly intact. Cerebellar exam normal Vital Signs: 11:58 Pulse 86; Resp 17; Temp 97.8; Pulse Ox 100% ; Weight 124.74 kg; bp 13:19 BP 95 / 60; Pulse 75; Resp 18; Temp 98.0(O); Pulse Ox 100% on R/A; mh5 13:51 BP 83 / 62; Pulse 77; Resp 19; Pulse Ox 100% ; bp 14:26 BP 81 / 58; Pulse 80; Resp 18; Temp 97.9(O); Pulse Ox 99% on R/A; mh5 14:38 BP 102 / 71; Pulse 83; Resp 19; Pulse Ox 100% on R/A; mh5 MDM: 11:54 Patient medically screened. rn 14:45 Data reviewed: vital signs. Data interpreted: Pulse oximetry: on room air is 100 %. pm1 Interpretation: normal. Counseling: I had a detailed discussion with the patient and/or guardian regarding: the historical points, exam findings, and any diagnostic results supporting the discharge/admit diagnosis, lab results, radiology results, the need for outpatient follow up, Bill for adjustment of diabetes medications. Hold insulin tomorrow morning. Get new glucometer, to return to the emergency department if symptoms worsen or persist or if there are any questions or concerns that arise at home. 09/14 11:59 Order name: Basic Metabolic Panel; Complete Time: 12:39 pm1 09/14 11:59 Order name: CBC with Diff; Complete Time: 12:39 pm1 09/14 11:59 Order name: CT Head Brain wo Cont; Complete Time: 12:39 pm1 09/14 11:59 Order name: LFT's; Complete Time: 12:39 pm1 09/14 12:24 Order name: Glucose, Ancillary Testing; Complete Time: 12:27 EDMS 09/14 14:13 Order name: Glucose, Ancillary Testing; Complete Time: 14:22 EDMS 09/14 11:59 Order name: EKG; Complete Time: 12:01 pm1 09/14 11:59 Order name: EKG - Nurse/Tech; Complete Time: 13:23 pm1 09/14 11:59 Order name: IV Saline Lock; Complete Time: 12:03 pm1 09/14 11:59 Order name: Labs collected and sent; Complete Time: 12:21 pm1 09/14 11:59 Order name: Diet Regular; Complete Time: 12:01 pm1 EC:17 Rate is 79 beats/min. Rhythm is regular. No Q waves. T waves are Normal. No ST changes pm1 noted. Clinical impression: Electronic ventricular pacemaker. Administered Medications: 12:15 Drug: D50W 50 ml Route: IVP; Site: left antecubital; bp 13:52 Follow up: Response: Blood sugar is elevated bp Disposition: 17:39 Co-signature as Attending Physician, Luis Shin MD. rn Disposition: 09/14/19 14:47 Discharged to Home. Impression: Hypoglycemia, unspecified. - Condition is Stable. - Discharge Instructions: Hypoglycemia, Blood Glucose Monitoring, Adult. - Medication Reconciliation Form, Thank You Letter, Antibiotic Education, Prescription Opioid Use form. - Follow up: Emergency Department; When: As needed; Reason: Worsening of condition. Follow up: Allison Khan MD; When: 2 - 3 days; Reason: Recheck today's complaints, Continuance of care, Re-evaluation by your physician. - Problem is new. - Symptoms are resolved. Signatures: Dispatcher [employer] EDMS Luis Shin MD MD rn Sue Abebe RN RN ss Enrike Crenshaw, DRY WALL NAILER DRY WALL NAILER pm1 Domo Longoria RN RN bp Corrections: (The following items were deleted from the chart) 15:06 14:47 09/14/2019 14:47 Discharged to Home. Impression: Hypoglycemia, unspecified. ss Condition is Stable. Forms are Medication Reconciliation Form, Thank You Letter, Antibiotic Education, Prescription Opioid Use. Follow up: Emergency Department; When: As needed; Reason: Worsening of condition. Follow up: Allison Khan; When: 2 - 3 days; Reason: Recheck today's complaints, Continuance of care, Re-evaluation by your physician. Problem is new. Symptoms are resolved. pm1
[2019-09-14 15:21] VITALS: TEMP 97.9
[2019-09-14 15:22] VITALS: BP 102/71; O2SAT 100
--- NOTE | 2019-09-14 16:48 | EKG ---
Test Date: 2019-09-14 Test Time: 13:12:43 Mixer Machine Feeder: BAM MEASUREMENT RESULTS: Intervals: Rate: 79 FL: 158 QRSD: 140 QT: 450 QTc: 516 [place]: P: 64 FL: 158 QRS: -54 T: 126 INTERPRETIVE STATEMENTS: Atrial-sensed ventricular-paced rhythm tracking sinus rhythm Compared to ECG 11/06/2018 07:40:42 Left bundle-branch block no longer present Atrial-sensed ventricular-paced rhythm now present Electronically Signed On 09-14-19 16:47:12 WEB MARKETING MANAGER by Darci Munguia
== END 2019-09-14 15:06 | disposition home or self-care (01) ==
LOC: ER 11:49
DX: E11.649 Type 2 diabetes mellitus with hypoglycemia without coma (principal); Z88.0 Allergy status to penicillin; Z91.018 Allergy to other foods
CPT/HCPCS: 36415; 70450; 80048; 80076; 82947; 85025; 93005; 96374; 99284